=== PATIENT | female | born 1960 | race African-American/Black ===

== ENCOUNTER 2020-02-14 18:43 | Observation (INO) | payer OTHER, SELFPAY ==
[2020-02-14] VITALS (7 sets, daily range): BP systolic 121–150; BP diastolic 58–75; PULSE 55–81; RESP 16–18; TEMP 36.1–37.2; O2SAT 97–100
--- NOTE | ~2020-02-14 | CT_ITS ---
EXAMINATION: CT abdomen pelvis w con DATE: 02/14/2020 23:17 INDICATION: Mid abdominal pain. TECHNIQUE: Computed tomography (CT) of the abdomen and pelvis was performed with 100 mL Omnipaque 350 intravenous contrast. Automated exposure control and iterative reconstruction technique were employe d. The dose-length product was 613.88 mGy-cm. COMPARISON: None. FINDINGS: The visualized portions of the lung bases demonstrate mild atelectasis. No pleural effusion . The heart size is normal. There are coronary artery calcifications. No pericardial effusion. The li trinity, gallbladder, and spleen are normal. The pancreatic duct is mildly dilated. There is a 1.6 cm mas s in right adrenal gland. There is a 1.1 cm mass in left adrenal gland. These masses measure soft tis martha attenuation. The kidneys are normal. There is a left inguinal hernia containing fat. There is div erticulosis of the colon without evidence of diverticulitis. The appendix is normal. There is fat str anding adjacent to the terminal ileum. There are no pathologically enlarged lymph nodes. There is no free intraperitoneal fluid. There is mild lumbar spondylosis. IMPRESSION: 1. Left inguinal hernia containing fat. 2. Fat stranding adjacent to the terminal ileum, consistent with edema versus inflammation. 3. Mildly dilated pancreatic duct, likely chronic pancreatitis. 4. Bilateral adrenal masses. In the absence of known malignancy, these findings are likely adenomas. Reviewed, dictated and finalized at location A. IMPRESSION: 1. Left inguinal hernia containing fat. 2. Fat stranding adjacent to the terminal ileum, consistent with edema versus i nflammation. 3. Mildly dilated pancreatic duct, likely chronic pancreatitis. 4. Bilateral adrenal masses. In the absence of known malignancy, these findings are likely adenomas.
--- NOTE | ~2020-02-14 | US_ITS ---
US right upper quadrant INDICATION: Pancreatitis PROCEDURE: Realtime right upper abdominal ultrasound. COMPARISON: No prior studies for comparison. FINDINGS: The pancreas is normal without focal mass. Pancreatic duct is dilated measuring 4 mm.. Dulce Maria er echotexture is normal without focal mass or intrahepatic biliary dilatation. There is normal dire ctional flow in the portal vein. The gallbladder is normal without stones, gallbladder wall thickening or pericholecystic fluid. Comm on bile duct measures 8 mm. No sonographic Sinha's sign. IMPRESSION: 1: Mildly dilated common bile duct and pancreatic ducts. Obstructing stone or mass identified. Reviewed, dictated and finalized at location B. IMPRESSION: 1: Mildly dilated common bile duct and pancreatic ducts. Obstructing stone or m ass identified.
[2020-02-14 19:21] LABS: Basophils Absolute Auto 0.1 K/mm3 (0.0-0.1); Basophils Percent Auto 0.4 % (0.2-1.2); Eosinophils Absolute Auto 0.2 K/mm3 (0-0.3); Eosinophils Percent Auto 1.3 % (0-4.4); Hematocrit 33.8 % (37.0-47.0); Hemoglobin 11.4 g/dL (12.0-15.0); Immature Granulocyte Absolute 0.12 K/mm3 (0.00-0.031); Immature Granulocyte Percent A 0.8 % (0-0.5); Lymphocytes Absolute Auto 5.45 K/mm3 (0.9-3.2); Lymphocytes Percent Auto 34.6 % (18.3-44.2); Mean Corpuscular HGB Conc 33.7 g/dl (32-36); Mean Corpuscular Hemoglobin 30.8 pg (26-34); Mean Corpuscular Volume 91.4 fl (80-100); Mean Platelet Volume 9.5 fl (7.4-10.4); Monocytes Absolute Auto 0.8 K/mm3 (0.1-0.6); Monocytes Percent Auto 4.8 % (2.6-8.5); Neutrophils Absolute Auto 9.1 K/mm3 (1.3-6.7); Neutrophils Percent Auto 58.1 % (45.5-73.1); Platelet Count Result 283 k/mm3 (150-375); White Blood Count 15.7 K/mm3 (4.5-10.0)
[2020-02-14 19:33] LABS: Alanine Aminotransferase 11 U/L (4-35); Albumin Level 4.4 g/dL (3.5-5.1); Alkaline Phosphatase 97 U/L (38-126); Aspartate Amino Transferase 21 U/L (14-36); Bilirubin,Total 0.2 mg/dL (0.2-1.3); Blood Urea Nitrogen 15 mg/dL (7-17); Calcium 9.7 mg/dL (8.4-10.2); Carbon Dioxide 22 mmol/L (22-30); Chloride 106 mmol/L (98-107); Estimated CRCL calculation 65 ml/min; Estimated Glomerular Filt Rate > 60; Glucose 118 mg/dL (65-105); Lipase 444 U/L (23-300); Potassium 3.8 mmol/L (3.4-5.0); Sodium 136 mmol/L (137-145)
[2020-02-14 20:02] LABS: Add Urine Microscopic? YES; Appearance Urine Clear (Clear); Bacteria Urine Trace /hpf; Bilirubin Urine Negative (Negative); Blood Urine 1+ (Negative); Color Urine Straw (Yellow); Glucose Urine UA 3+ mg/dL (Negative); Ketones Urine Negative (Negative); Leukocyte Esterase Ur 2+ LEU/UL (Negative); Nitrate Urine Negative (Negative); Protein Urine Negative (Negative); Specific Grav Ur 1.009 (1.001-1.035); Squamous Epithelial Cell Urine Few /hpf (Few); Urobilinogen Urine Negative mg/dL (<2.0)
--- NOTE | 2020-02-14 22:17 | ED.GENADULT ---
HPI - General Adult General Chief complaint: Abdominal Pain Stated complaint: abd pain Time Seen by Provider: 02/14/20 21:53 History of Present Illness HPI narrative: Patient is a 59 y/o female complaining of generalized abdominal pain starting 3 days ago. She states that it a constant pain and rates it as 8-9/10. There is no pain radiation. There is no alleviating or exacerbating factor. She has no fever, chill, vomiting, diarrhea or dysuria. Of note, she is scheduled to have right mastectomy for breast cancer. Related Data Home Medications Medication Instructions Recorded Confirmed acetaminophen [Tylenol Arthritis 650 mg PO Q8H 02/15/20 02/15/20 Pain] anastrozole 1 mg PO DAILY 02/15/20 02/15/20 carvedilol 6.25 mg PO BID 02/15/20 02/15/20 empagliflozin [Jardiance] 10 mg PO DAILY 02/15/20 02/15/20 ergocalciferol (vitamin D2) 50,000 unit PO WEEKLY 02/15/20 02/15/20 glimepiride 4 mg PO DAILY 02/15/20 02/15/20 hydrochlorothiazide 25 mg PO DAILY 02/15/20 02/15/20 lisinopril 10 mg PO DAILY 02/15/20 02/15/20 metformin 500 mg PO DAILY 02/15/20 02/15/20 pantoprazole 20 mg PO DAILY 02/15/20 02/15/20 pioglitazone 30 mg PO DAILY 02/15/20 02/15/20 rosuvastatin 40 mg PO DAILY 02/15/20 02/15/20 tramadol 25 mg PO DAILY PRN 02/15/20 02/15/20 Allergies Allergy/AdvReac Type Severity Reaction Status Date / Time codeine Allergy Severe Hives Verified 02/15/20 02:04 Review of Systems Constitutional: Constitutional: Denies chills, Denies fever(s), Denies headache(s) and Denies weakness Eyes: Eyes: Denies blurry vision ENT: Denies headache(s) and Denies neck pain Cardiovascular: Cardiovascular: Denies chest pain and Denies dyspnea Respiratory: Respiratory: Denies cough and Denies dyspnea Gastrointestinal: Gastrointestinal: Reports abdominal pain, Denies diarrhea, Denies nausea and Denies vomiting Genitourinary: Genitourinary: Denies hematuria and Denies dysuria Musculoskeletal: Musculoskeletal: Denies back pain and Denies neck pain Neurologic: Denies headache(s) and Denies weakness [facility] Past Medical History Medical History (Updated 02/15/20 @ 10:25 by Rosalinda Long MD) Ankle fracture Breast cancer Diabetes Family History Family History (Updated 02/15/20 @ 09:54 by James Larios MD) Mother , Diet after complications of surgery for perforated viscus Acute myocardial infarction Sibling Asthma Father , Thought to have in his 50s unknown cause in his sleep No problems noted. Social History Social History (Updated 02/15/20 @ 09:56 by James Larios MD) Social History: Presently lives alone. Occupational exposure Years smoked: 40 Smoking status: Current every day smoker Tobacco type: cigarettes Additional smoking assessment comments: Has smoked for some 40 years presently at half pack a day Alcohol intake: current Drinks per week: 20 Substance use: never Living arrangements: alone Gender identity (if verbalized by the patient): Female Spiritual care concerns: No Exam Const: General: no acute distress and well developed Orientation/consciousness: oriented to person, oriented to place, oriented to time and patient oriented x3 HENMT: Head: normocephalic Ears: external ears normal General nose exam: Normal external nose present Eyes: General: appearance normal, both eyes and all related structures Conjunctivae: conjunctivae normal Neck: Neck: normal visual inspection and full ROM Chest: Chest palpation & inspection: normal inspection of the chest and no tenderness Resp: Effort & Inspection: normal respiratory effort Auscultation: clear to auscultation bilaterally Cardio: Rate: regular rate Rhythm: regular rhythm GI: GI Palp: No abdominal tenderness and Yes Soft to palpation Skin: General skin exam: normal color and turgor normal Neuro: General: oriented to person, oriented to place, oriented to time and patient oriented x3 [facility]ognit
[2020-02-14] MEDS: KETOROLAC 30 MG/ML VIAL (*BKC) IV PUSH (22:46)
[2020-02-15] VITALS (9 sets, daily range): BP systolic 102–135; BP diastolic 54–66; PULSE 56–100; RESP 16–18; TEMP 36.6–37; O2SAT 97–100
[2020-02-15 00:21] LABS: CRP 0.8 mg/dL (<1.0)
[2020-02-15 00:30] LABS: Erythrocyte Sedimentation Rate 27 mm/hr (0-20)
--- NOTE | 2020-02-15 01:40 | ADMGEN ---
This patient, Bri Root, was admitted to [facility] Surg Room 312-01. Patient/family oriented to hospital policies and general routines including ID bracelet, bed and alarms, visiting hours, pain management, procedures, bathroom and other care routines, personal items, smoking policy, room service/diet, and visiting hours. Valuables list has been completed. Information on how to activate the Rapid Response Team has been discussed. Patient/Family are encouraged to report perceived risks to care and to ask questions if they do not understand what they are told or what they should do.
[2020-02-15] MEDS: SODIUM CHLORIDE 0.9% IV 1,000 ML 125 ML IV CONT ×3 (01:42→21:42)
[2020-02-15 08:58] LABS: Glucose Point of Care 80 (65-105)
--- NOTE | 2020-02-15 09:37 | PM.IMHP ---
H&P: HPI History of Present Illness Chief complaint: pancreatitis Narrative: Date of visit 02/14 910. Bri Root is a 59 year old female with history of coronary artery disease and type 2 diabetes mellitus was awaken at approximately 3:00 a.m. on 02/10 with acute abdominal pain across her upper abdomen. Pain has persisted since that time. Been having bowel movements though slightly constipated with no nausea or vomiting. Never had pain like this in the past. She was scheduled to have a right mastectomy on the at [facility] and states that due to anxiety associated with that and not sleeping well she has been drinking about a six-pack of beer each night the past week.. She usually drinks much less usually just on the weekends. In the ER CT thought to be possible chronic pancreatitis with lipase of 444. Pain is better but still present and she is hungry Review of Systems Review of Systems: Narrative: General weight steady appetite good no fever no chills Eye no double vision scotoma Mouth no pharyngitis laryngitis Pulmonary some dyspnea on exertion 2 flights of stairs chronic CV occasional chest discomfort though not with climbing stairs, is status post stenting the last in 2014 GI as per present illness no history of peptic disease no dysuria no hematuria Muscle skeletal no particular joint discuss Integument no skin breakdown rashes Neuropsych seizures syncope [facility] Past Medical History Medical History (Updated 02/15/20 @ 09:52 by James Larios MD) Ankle fracture Breast cancer Diabetes Family History Family History (Updated 02/15/20 @ 09:54 by James Larios MD) Mother , Diet after complications of surgery for perforated viscus Acute myocardial infarction Sibling Asthma Father , Thought to have in his 50s unknown cause in his sleep No problems noted. Social History Social History (Updated 02/15/20 @ 09:56 by James Larios MD) Social History: Presently lives alone. Occupational exposure Years smoked: 40 Smoking status: Current every day smoker Tobacco type: cigarettes Additional smoking assessment comments: Has smoked for some 40 years presently at half pack a day Alcohol intake: current Drinks per week: 20 Substance use: never Living arrangements: alone Gender identity (if verbalized by the patient): Female Spiritual care concerns: No Meds Home Medications and Allergies Home Medications Medication Instructions Recorded Confirmed Type acetaminophen [Tylenol Arthritis 650 mg PO Q8H 02/15/20 02/15/20 History Pain] anastrozole 1 mg PO DAILY 02/15/20 02/15/20 History carvedilol 6.25 mg PO BID 02/15/20 02/15/20 History empagliflozin [Jardiance] 10 mg PO DAILY 02/15/20 02/15/20 History ergocalciferol (vitamin D2) 50,000 unit PO WEEKLY 02/15/20 02/15/20 History glimepiride 4 mg PO DAILY 02/15/20 02/15/20 History hydrochlorothiazide 25 mg PO DAILY 02/15/20 02/15/20 History lisinopril 10 mg PO DAILY 02/15/20 02/15/20 History metformin 500 mg PO DAILY 02/15/20 02/15/20 History pantoprazole 20 mg PO DAILY 02/15/20 02/15/20 History pioglitazone 30 mg PO DAILY 02/15/20 02/15/20 History rosuvastatin 40 mg PO DAILY 02/15/20 02/15/20 History tramadol 25 mg PO DAILY PRN 02/15/20 02/15/20 History Allergies Allergy/AdvReac Type Severity Reaction Status Date / Time codeine Allergy Severe Hives Verified 02/15/20 02:04 Vital Signs Vital Signs - 24 hr 02/14/20 19:10 02/14/20 21:34 02/14/20 22:00 Temperature 37.2 C 36.1 C L Pulse Rate 81 77 55 L Respiratory Rate 18 18 Blood Pressure 121/66 148/69 H 127/69 Pulse Oximetry 100 100 98 02/14/20 22:30 02/14/20 23:00 02/14/20 23:30 Temperature Pulse Rate 72 67 78 Respiratory Rate 18 16 16 Blood Pressure 127/69 133/58 L 150/75 H Pulse Oximetry 98 97 99 02/14/20 23:54 02/15/20 00:00 02/15/20 00:30 Temperature Pulse Rate 73 74 73 Respiratory Rate 16 16
[2020-02-15] MEDS: ROSUVASTATIN 10 MG TABLET 40 MG PO (12:55)
[2020-02-15] MEDS: PIOGLITAZONE HCL 30 MG TABLET PO (12:56)
[2020-02-15] MEDS: ACETAMINOPHEN 325 MG TABLET 650 MG PO ×2 (12:56→17:24)
[2020-02-15] MEDS: ANASTROZOLE (*CHEMO) 1 MG TABLET PO (12:56)
[2020-02-15] MEDS: lisinopriL 10 MG TABLET PO (12:57)
[2020-02-15] MEDS: carvediloL 6.25 MG TABLET PO ×2 (12:57→21:41)
[2020-02-15] MEDS: PANTOPRAZOLE SOD SESQUIHYDRATE 20 MG TAB PO (12:58)
[2020-02-15] MEDS: THIAMINE HCL 100 MG TABLET PO (17:24)
[2020-02-15] MEDS: ENOXAPARIN 40 MG/0.4 ML SYRINGE SUB-Q (17:24)
--- NOTE | 2020-02-15 18:06 | WPDGICN ---
Assessment and Plan Assessment and plan (1) Abdominal pain: Qualifiers: Abdominal location: generalized Qualified Code(s): R10.84 - Generalized abdominal pain Code(s): R10.9 - Unspecified abdominal pain Status: Acute Assessment and Plan: probably due to pancreatitis, PD slightly dilated. Now tolerating liquid diet will do egd tomorrow to assess if ulcers, etc (2) Pancreatitis: Qualifiers: Chronicity: chronic Pancreatitis type: unspecified pancreatitis type Qualified Code(s): K86.1 - Other chronic pancreatitis Code(s): K85.90 - Acute pancreatitis without necrosis or infection, unspecified Status: Acute Assessment and Plan: avoid alcohol (3) ETOH abuse: Code(s): F10.10 - Alcohol abuse, uncomplicated Status: Acute Assessment and Plan: she has been drinking recently more than usual because insomnia and anxiety (4) Abdominal pain: Code(s): R10.9 - Unspecified abdominal pain Status: Acute (5) Abnormal computed tomography of cecum and terminal ileum: Code(s): R93.3 - Abnormal findings on diagnostic imaging of other parts of digestive tract Status: Acute Assessment and Plan: noted abnormal TI, never had a colonoscopy. She is willing to get one tomorrow (6) Breast cancer: Code(s): C50.919 - Malignant neoplasm of unspecified site of unspecified female breast Status: Acute Assessment and Plan: she will have breast surgery in few more days GI Consult Note Consult date/time: 02/15/20 18:06 Reason for consult: abdominal pain, pancreatitis, abnormal TI by CT scan HPI: Bri Root is a 59 year old female with history of coronary artery disease, type 2 diabetes mellitus here with new onset of pain around 3:30 a.m. on 02/10 across her upper abdomen but worse if lying on her right side, pain is better now and was intermittent. She has bowel movements but more constipated, no nausea or vomiting. She was scheduled to have a right mastectomy on the at [facility] and she has been quite anxious about it unable to sleep therefore has been drinking about a six-pack of beer each night the last 2 weeks, normally she only drinks on the weekends. Never had pancreatitis. CT scan showed fat stranding adjacent to the terminal ileum, consistent with edema versus inflammation and also mildly dilated pancreatic duct, likely chronic pancreatitis. lipase 440 with normal liver enzymes. Never had scopes. Review of Systems Constitutional: Constitutional: Denies headache(s) and Denies weakness Eyes: Eyes: Denies blurry vision ENT: Reports Normal hearing present, Denies headache(s) and Denies neck pain Cardiovascular: Cardiovascular: Denies chest pain and Denies dyspnea Respiratory: Respiratory: Denies dyspnea Gastrointestinal: Gastrointestinal: Reports no additional gastrointestinal complaints Genitourinary: Genitourinary: Denies dysuria Musculoskeletal: Musculoskeletal: Denies neck pain Integumentary/Breasts: Skin/Breast: Denies dry skin Neurologic: Reports Normal hearing present, Denies headache(s) and Denies weakness Psychiatric: Psychiatric: Denies anxiety Endocrine: Endocrine: Denies change in body appearance Hematologic/Lymphatic: Hematologic/Lymphatic: Denies easy bleeding Allergic/Immunologic: Allergic/Immunologic: Denies urticaria PMFSH Past Medical History Medical History (Updated 02/15/20 @ 18:10 by Luis Serrano MD) Abnormal computed tomography of cecum and terminal ileum Ankle fracture Breast cancer Diabetes Family History Family History (Updated 02/15/20 @ 09:54 by James Larios MD) Mother , Diet after complications of surgery for perforated viscus Acute myocardial infarction Sibling Asthma Father , Thought to have in his 50s unknown cause in his sleep No problems noted. Social History Social History (Updated 02/15/20
[2020-02-15] MEDS: BISACODYL 5 MG TABLET EC 20 MG PO (21:39)
[2020-02-15] MEDS: polyethylene glycoL 3350 238 GM BOTTLE PO (21:40)
[2020-02-15] MEDS: ONDANSETRON INJ 4 MG/2 ML VIAL IV PUSH (21:42)
[2020-02-16] VITALS (8 sets, daily range): BP systolic 88–130; BP diastolic 38–77; PULSE 62–75; RESP 16–22; TEMP 36.2–37.2; O2SAT 97–100
[2020-02-16] MEDS: ACETAMINOPHEN 325 MG TABLET 650 MG PO ×3 (01:41→18:07)
[2020-02-16] MEDS: SODIUM CHLORIDE 0.9% IV 1,000 ML 125 ML IV CONT (05:17)
[2020-02-16] MEDS: MAGNESIUM CITRATE 300 ML BTL 150 ML PO (05:19)
[2020-02-16 06:27] LABS: Basophils Absolute Auto 0.1 K/mm3 (0.0-0.1); Basophils Percent Auto 0.6 % (0.2-1.2); Eosinophils Absolute Auto 0.2 K/mm3 (0-0.3); Eosinophils Percent Auto 1.9 % (0-4.4); Hematocrit 33.3 % (37.0-47.0); Hemoglobin 10.9 g/dL (12.0-15.0); Immature Granulocyte Absolute 0.06 K/mm3 (0.00-0.031); Immature Granulocyte Percent A 0.5 % (0-0.5); Mean Corpuscular HGB Conc 32.7 g/dl (32-36); Mean Corpuscular Hemoglobin 30.4 pg (26-34); Mean Corpuscular Volume 92.8 fl (80-100); Mean Platelet Volume 9.4 fl (7.4-10.4); Monocytes Absolute Auto 0.6 K/mm3 (0.1-0.6); Monocytes Percent Auto 5.5 % (2.6-8.5); Neutrophils Absolute Auto 5.7 K/mm3 (1.3-6.7); Neutrophils Percent Auto 51.5 % (45.5-73.1); Platelet Count Result 257 k/mm3 (150-375); Red Blood Count 3.59 M/mm3 (4.2-5.4); Red Cell Distribution Width 15.2 % (11.5-14.5)
[2020-02-16 06:41] LABS: Alanine Aminotransferase 10 U/L (4-35); Albumin Level 3.8 g/dL (3.5-5.1); Alkaline Phosphatase 85 U/L (38-126); Aspartate Amino Transferase 22 U/L (14-36); Bilirubin,Total 0.1 mg/dL (0.2-1.3); Blood Urea Nitrogen 11 mg/dL (7-17); Calcium 8.9 mg/dL (8.4-10.2); Carbon Dioxide 21 mmol/L (22-30); Chloride 113 mmol/L (98-107); Cholesterol 138 mg/dL (0-200); Estimated CRCL calculation 72 ml/min; Estimated Glomerular Filt Rate > 60; Glucose 143 mg/dL (65-105); HDL Direct 29 mg/dL; Lipase 451 U/L (23-300); Potassium 3.9 mmol/L (3.4-5.0); Sodium 140 mmol/L (137-145); Triglycerides 200 mg/dL (<150)
[2020-02-16 06:52] LABS: LDL Cholesterol Direct 71 mg/dL
[2020-02-16 06:54] LABS: Hemoglobin A1C 6.5 % (<5.7)
[2020-02-16] MEDS: THIAMINE HCL 100 MG TABLET PO (09:09)
[2020-02-16] MEDS: PANTOPRAZOLE SOD SESQUIHYDRATE 20 MG TAB PO (09:09)
[2020-02-16] MEDS: ROSUVASTATIN 10 MG TABLET 40 MG PO (09:09)
[2020-02-16] MEDS: PIOGLITAZONE HCL 30 MG TABLET PO (09:09)
[2020-02-16] MEDS: carvediloL 6.25 MG TABLET PO (09:10)
[2020-02-16] MEDS: lisinopriL 10 MG TABLET PO (09:10)
[2020-02-16] MEDS: ANASTROZOLE (*CHEMO) 1 MG TABLET PO (09:10)
[2020-02-16 12:57] LABS: Glucose Point of Care 92 (65-105)
--- NOTE | 2020-02-16 13:00 | WPDANESEPPF ---
Anes - Initial Pre Proc Eval Procedure: Operation Date: 02/16/20 13:15 Proposed Procedures p Esophagogastroduodenoscopy & Colonoscopy - Luis Serrano MD Date/Time: 02/16/20 13:00 Surgeon: Diana Daniel DO Pre Op Diagnosis: pancreatitis Patient Data Age: 59 Gender: F Height: 5 ft 4 in Weight: 74.8 kg Last Vital Signs Temp 98.4 F 02/16/20 12:58 Pulse 65 02/16/20 12:58 Resp 22 H 02/16/20 12:58 BP 122/68 02/16/20 12:58 Pulse Ox 100 02/16/20 12:58 Allergies Allergy/AdvReac Type Severity Reaction Status Date / Time codeine Allergy Severe Hives Verified 02/16/20 12:57 Home Medications Medication Instructions Recorded Confirmed Type acetaminophen [Tylenol Arthritis 650 mg PO Q8H 02/15/20 02/15/20 History Pain] anastrozole 1 mg PO DAILY 02/15/20 02/15/20 History carvedilol 6.25 mg PO BID 02/15/20 02/15/20 History empagliflozin [Jardiance] 10 mg PO DAILY 02/15/20 02/15/20 History ergocalciferol (vitamin D2) 50,000 unit PO WEEKLY 02/15/20 02/15/20 History glimepiride 4 mg PO DAILY 02/15/20 02/15/20 History hydrochlorothiazide 25 mg PO DAILY 02/15/20 02/15/20 History lisinopril 10 mg PO DAILY 02/15/20 02/15/20 History metformin 500 mg PO DAILY 02/15/20 02/15/20 History pantoprazole 20 mg PO DAILY 02/15/20 02/15/20 History pioglitazone 30 mg PO DAILY 02/15/20 02/15/20 History rosuvastatin 40 mg PO DAILY 02/15/20 02/15/20 History tramadol 25 mg PO DAILY PRN 02/15/20 02/15/20 History Laboratory Tests 02/16/20 02/16/20 02/16/20 06:08 06:08 06:08 WBC 11.0 K/mm3 H K/mm3 (4.5-10.0) RBC 3.59 M/mm3 L M/mm3 (4.2-5.4) Hgb 10.9 g/dL L g/dL (12.0-15.0) Hct 33.3 % L % (37.0-47.0) MCV 92.8 fl fl (80-100) MCH 30.4 pg pg (26-34) MCHC 32.7 g/dl g/dl (32-36) RDW 15.2 % H % (11.5-14.5) Plt Count 257 k/mm3 k/mm3 (150-375) MPV 9.4 fl fl (7.4-10.4) Immature Gran % (Auto) 0.5 % % (0-0.5) Neut % (Auto) 51.5 % % (45.5-73.1) Lymph % (Auto) 40.0 % % (18.3-44.2) [place] % (Auto) 5.5 % % (2.6-8.5) Eos % (Auto) 1.9 % % (0-4.4) Baso % (Auto) 0.6 % % (0.2-1.2) Lymph # (Auto) 4.40 K/mm3 H K/mm3 (0.9-3.2) [place] # (Auto) 0.6 K/mm3 K/mm3 (0.1-0.6) Eos # (Auto) 0.2 K/mm3 K/mm3 (0-0.3) Baso # (Auto) 0.1 K/mm3 K/mm3 (0.0-0.1) Abs Immat Gran (auto) 0.06 K/mm3 H K/mm3 (0.00-0.031) Absolute Neuts (auto) 5.7 K/mm3 K/mm3 (1.3-6.7) Absolute Nucleated RBC 0.0 K/mm3 K/mm3 (0.0-0.012) Nucleated RBC % 0.0 % % (0.0-0.2) Sodium 140 mmol/L mmol/L (137-145) Potassium 3.9 mmol/L mmol/L (3.4-5.0) Chloride 113 mmol/L H mmol/L (98-107) Carbon Dioxide 21 mmol/L L mmol/L (22-30) BUN 11 mg/dL mg/dL (7-17) Creatinine 0.70 mg/dL mg/dL (0.7-1.0) Estim Creat Clear Calc 72 ml/min ml/min Estimated GFR > 60 (59 - ) Glucose 143 mg/dL H mg/dL (65-105) POC Capillary Glucose Hemoglobin A1c 6.5 % H % (<5.7) Calcium 8.9 mg/dL mg/dL (8.4-10.2) Total Bilirubin 0.1 mg/dL L mg/dL (0.2-1.3) AST 22 U/L U/L (14-36) ALT 10 U/L U/L (4-35) Alkaline Phosphatase 85 U/L U/L (38-126) Total Protein 7.0 g/dL g/dL (6.3-8.2) Albumin 3.8 g/dL g/dL (3.5-5.1) Triglycerides 200 mg/dL H mg/dL (<150) Cholesterol 138 mg/dL mg/dL (0-200) LDL Cholesterol Direct 71 mg/dL mg/dL HDL Direct 29 mg/dL mg/dL Lipase 451 U/L H U/L (23-300) 02/16/20 12:54 WBC RBC Hgb Hct MCV MCH MCHC RDW Plt Count MPV Immature Gran % (Auto) Neut % (Auto) Lymph % (
[2020-02-16] MEDS: LACTATED RINGERS 1,000 ML 150 ML IV CONT (13:05)
--- NOTE | 2020-02-16 16:27 | PM.IMPN ---
Progress Note: A&P Assessment and Plan (1) Abdominal pain: Code(s): R10.9 - Unspecified abdominal pain Status: Acute Assessment and Plan: Probable low-grade pancreatitis. sonogram right upper quadrant no gallstones, continue PPI with EGD today revealing mild gastritis, lipids not elevated. She has good bowel sounds and will advance diet is tolerated if does well discharge later today. Suspect all secondary to ETOH (2) ETOH abuse: Code(s): F10.10 - Alcohol abuse, uncomplicated Status: Acute Assessment and Plan: Suspect as by history just recently since MCV and LFTs are normal. Continue to monitor (3) Coronary artery disease: Code(s): I25.10 - Atherosclerotic heart disease of [place] coronary artery without angina pectoris Status: Acute Assessment and Plan: By history. Continue beta-shan and Ravindra and statin. Stable (4) Diabetes: Code(s): E11.9 - Type 2 diabetes mellitus without complications Status: Acute Assessment and Plan: Blood sugar fine and will check A1c 6.5. . Sliding scale while inpatient off oral hypoglycemic (5) Breast cancer: Code(s): C50.919 - Malignant neoplasm of unspecified site of unspecified female breast Status: Acute Assessment and Plan: Continue anastrozole and surgery on hold at present time and she has contacted her surgeon. Subjective Date/time seen: 02/16/20 16:27 Interval history: Date of visit is 02/15. [age] type 2 diabetic who had been drinking about a six-pack in evening admitted with acute onset abdominal pain thought to have a low-grade pancreatitis. Pain is subsided and feeling much better. EGD a a colonoscopy Scheduled for today Exam Narrative: Exam Narrative: Blood pressure 108/72 pulse 74 saturating 97% on room air afebrile Pupils equal reactive light sclera anicteric Mouth normal Neck is supple Lungs clear CV regular rate rhythm no murmurs or gallops Abdomen is soft with decreased tenderness to palpation across the upper abdomen and no rebound or guarding, good bowel sounds Extremities without edema distal pulses are 2+ Neuro alert pleasant cooperative no focal deficits Breast not examined with history of right breast cancer Psych appropriate affect Objective Data Vital Signs Vital Signs: Vital Signs - 24 hr 02/15/20 21:41 02/15/20 22:00 02/16/20 00:00 Temperature 37.0 C 36.9 C Pulse Rate 72 56 L 69 Respiratory Rate 16 18 Blood Pressure 135/63 122/77 Pulse Oximetry 99 100 02/16/20 06:00 02/16/20 10:18 02/16/20 12:58 Temperature 37.1 C 37.2 C 36.9 C Pulse Rate 64 69 65 Respiratory Rate 16 18 22 H Blood Pressure 121/61 130/75 122/68 Pulse Oximetry 98 100 100 02/16/20 13:10 02/16/20 14:36 02/16/20 14:46 Temperature 36.2 C L Pulse Rate 62 71 72 Respiratory Rate 18 18 18 Blood Pressure 130/71 88/40 L 93/38 L Pulse Oximetry 100 97 100 02/16/20 14:56 Temperature Pulse Rate 75 Respiratory Rate 18 Blood Pressure 107/43 L Pulse Oximetry 100 Intake/Output Intake/Output: Intake & Output 02/13/20 02/14/20 02/15/20 02/16/20 23:59 23:59 23:59 23:59 Intake Total 2480 1850 Output Total 450 800 Balance 2030 1050 Meds/Results Medications: Active Medications Generic Name Dose Route Start Last Admin Trade Name Freq PRN Reason Stop Dose Admin Acetaminophen 650 mg 02/15/20 09:35 02/16/20 09:09 Tylenol Tablet PO 650 mg Q8H CATALINO Administration Anastrozole 1 mg 02/15/20 10:00 02/16/20 09:10 Arimidex PO 03/17/20 10:01 1 mg DAILY CATALINO Administration Carvedilol 6.25 mg 02/15/20 10:00 02/16/20 09:10 Coreg PO 6.25 mg Q12HR CATALINO Administration Enoxaparin Sodium 40 mg 02/15/20 09:35 02/15/20 17:24 Lovenox SUB-Q 40 mg DAILY CATALINO Administration Ergocalciferol 50,000 unit 02/18/20 09:00 Drisdol PO WEEKLY CATALINO Fentanyl Citrate 50 mcg 02/15/20 00:03 Sublimaze IV PUSH Q4H PRN Pain
--- NOTE | 2020-02-19 18:34 | PM.DS ---
DS: Admitting Diagnosis Admitting Diagnosis Admitting Diagnosis: Unspecified abdominal pain DS: Discharge Diagnosis Discharge Diagnosis (1) Abdominal pain: Code(s): R10.9 - Unspecified abdominal pain Status: Acute Assessment and Plan: Probable low-grade pancreatitis. sonogram right upper quadrant no gallstones, continue PPI with EGD revealing mild patchy gastritis, lipids not elevated. She has good bowel sounds and advanced diet which she tolerated well. Suspect all secondary to ETOH (2) ETOH abuse: Code(s): F10.10 - Alcohol abuse, uncomplicated Status: Acute Assessment and Plan: Suspect as by history just recently since MCV and LFTs are normal. Continue to monitor Instructed patient on cessation of alcohol consumption and she agree (3) Coronary artery disease: Code(s): I25.10 - Atherosclerotic heart disease of [place] coronary artery without angina pectoris Status: Acute Assessment and Plan: By history. Continue beta-shan and Ravindra and statin. Stable (4) Diabetes: Code(s): E11.9 - Type 2 diabetes mellitus without complications Status: Acute Assessment and Plan: Blood sugar fine and will check A1c 6.5. . Sliding scale while inpatient and resumed oral hypoglycemics on discharge (5) Breast cancer: Code(s): C50.919 - Malignant neoplasm of unspecified site of unspecified female breast Status: Acute Assessment and Plan: Continue anastrozole and surgery on hold at present time and she has contact her surgeon. (6) Adenomatous polyp: Code(s): D36.9 - Benign neoplasm, unspecified site Status: Acute Assessment and Plan: Adenomatous polyp found on colonoscopy and should have repeat colonoscope in 5 years. She will follow-up with GI DS: Summary Hospital Course Hospital Course: 59-year-old hypertensive type 2 diabetic scheduled upcoming right mastectomy for adenocarcinoma. She has not been sleeping well and had been drinking more beer to relax and help her sleep. She presented with abdominal pain and CT scan revealed what looked to be possible mild pancreatitis and lipase was slightly elevated. Symptoms resolved quickly and lipids were normal. Sonogram revealed no gallstones and EGD revealed no peptic disease to some mild patchy gastritis She tolerated diet well was up in about a will be discharged home after EGD. She will follow-up with her surgeon and was instructed to cease alcohol consumption. Other medications remain the same Time Spent with Patient Time attestation: Total time spent providing and/or coordinating discharge services: 35 minutes Exam Narrative: Exam Narrative: Condition on discharge Blood pressure 106/42 pulse 78 saturating 100% on room air afebrile Lungs clear CV regular rate rhythm Abdomen is soft bowel sounds normal active no further discomfort Extremities without edema good distal pulses Tolerated regular diet before discharge DS: Data Data Completed and Pending Completed studies during hospitalization: Pending at discharge 02/16/20 14:30 Surgical [PTH] Routine Discharge Plan Discharge Attending physician on discharge: James Larios Consulting providers: Luis Serrano ; Pernell Farfan V. ; Shyam Bailon Discharging Clinician: James Larios Patient Disposition: Home, Self-Care Activity: as tolerated Diet: diabetic, low sodium and low fat Discharge Instructions: contact surgeon to reschedule . should be able to have surgery next week No ETOH Patient Instructions: Antibiotic Form, How to Stop Smoking (DC), Pancreatitis (DC), Pain Management (DC) Stand Alone Forms: General Discharge Information Follow-up/Referrals: Madeline,Adalid Higuera [Primary Care Provider] - 2 Weeks Discharge Medications: Continued anastrozole 1 mg tablet 1 mg PO DAILY RF: 0 carvedilol 6.25 mg tablet 6.25 mg PO BID RF: 0 tramadol 50 mg
== END 2020-02-16 19:30 | disposition home or self-care (01) ==
LOC: ANHED 02-15 00:25 → ANH3MEDSUR 02-15 02:22
PROVIDERS: Internal Medicine Gastroenterology; Admitting Provider Internal Medicine; Emergency Provider Emergency Medicine; PCP Internal Medicine Infectious Disease; Visit Provider Internal Medicine
PROC: 0DJ08ZZ Inspection of Upper Intestinal Tract, Via Natural or Artificial Opening Endoscopic (ICD-10-PCS; CPT 43235; principal; 2020-02-16 13:15)
DX: R10.84 Generalized abdominal pain (principal); F10.10 Alcohol abuse, uncomplicated; I25.10 Atherosclerotic heart disease of native coronary artery without angina pectoris; E11.9 Type 2 diabetes mellitus without complications; C50.919 Malignant neoplasm of unspecified site of unspecified female breast; K29.50 Unspecified chronic gastritis without bleeding; K44.9 Diaphragmatic hernia without obstruction or gangrene; D12.6 Benign neoplasm of colon, unspecified; K62.1 Rectal polyp; K63.5 Polyp of colon; K57.30 Diverticulosis of large intestine without perforation or abscess without bleeding; F17.210 Nicotine dependence, cigarettes, uncomplicated; K85.90 Acute pancreatitis without necrosis or infection, unspecified; Z79.811 Long term (current) use of aromatase inhibitors; Z79.84 Long term (current) use of oral hypoglycemic drugs
CPT/HCPCS: 45385; 43239; 36415; 74177; 76705; 80053; 80061; 81001; 83036; 83690; 85025; 85652; 86140; 87081; 87086; 88305; 96360; 96361; 96372; 96374; 96375; 99285; A9270; G0378; G0379; J1650; J1885; J2370; J2405; J2704; J3010; J7030; J7120; Q9967

== ENCOUNTER 2022-03-13 01:42 | Day surgery (SDC) | payer OTHER, SELFPAY ==
[2022-03-01 13:34] VITALS: BMI 29.7
[2022-03-13 07:30] VITALS: BP 133/69; PULSE 74; RESP 18; TEMP 36.9; O2SAT 100; BMI 29.9
[2022-03-13] MEDS: LACTATED RINGERS 1,000 ML 150 ML IV CONT (08:01)
[2022-03-13 08:03] LABS: Glucose Point of Care 176 mg/dl (65-105)
--- NOTE | 2022-03-13 08:26 | WPDANESEPPF ---
Anes - Initial Pre Proc Eval Procedure: Operation Date: 03/13/22 09:00 Proposed Procedures p Esophagogastroduodenoscopy - Luis Serrano MD Date/Time: 03/13/22 08:26 Surgeon: Luis Serrano MD Pre Op Diagnosis: gastritis Patient Data Age: 61 Gender: F Height: 1.63 m Weight: 79 kg Last Vital Signs Temp 98.4 F 03/13/22 07:30 Pulse 74 03/13/22 07:30 Resp 18 03/13/22 07:30 BP 133/69 03/13/22 07:30 Pulse Ox 100 03/13/22 07:30 O2 Del Method Room Air 03/13/22 07:30 Allergies Allergy/AdvReac Type Severity Reaction Status Date / Time codeine Allergy Severe Hives Verified 03/13/22 07:42 Home Medications Medication Instructions Recorded Confirmed Type acetaminophen 650 mg 650 mg PO Q8H PRN Pain 02/15/20 03/13/22 History tablet,extended release (Tylenol Arthritis Pain) carvedilol 6.25 mg tablet 6.25 mg PO BID 02/15/20 03/13/22 History glimepiride 4 mg tablet 4 mg PO DAILY 02/15/20 03/13/22 History hydrochlorothiazide 25 mg tablet 25 mg PO DAILY 02/15/20 03/13/22 History lisinopril 10 mg tablet 10 mg PO DAILY 02/15/20 03/13/22 History pantoprazole 20 mg tablet,delayed 20 mg PO DAILY 02/15/20 03/13/22 History release pioglitazone 30 mg tablet 30 mg PO DAILY 02/15/20 03/13/22 History rosuvastatin 40 mg tablet 40 mg PO DAILY 02/15/20 03/13/22 History aspirin 81 mg tablet 81 mg PO DAILY 03/01/22 03/13/22 History calcium carbonate 600 mg-vitamin 1 tablet PO DAILY 03/01/22 03/13/22 History D3 10 mcg (400 unit) tablet (Calcium 600 + D(3)) clopidogrel 75 mg tablet 75 mg PO DAILY 03/01/22 03/13/22 History empagliflozin 25 mg tablet 25 mg PO DAILY 03/01/22 03/13/22 History (Jardiance) Laboratory Tests 03/13/22 07:49 POC Capillary Glucose 176 mg/dl H mg/dl (65-105) Patient hx anesthesia problems: none Family hx anesthesia problems: none Results Review: All pre-operative results and documents have been reviewed as part of the pre-operative evaluation. [facility] Past Medical History Medical History (Updated 02/19/20 @ 18:38 by James CooperMD) Abnormal computed tomography of cecum and terminal ileum Ankle fracture Breast cancer Diabetes Family History Family History (Updated 02/15/20 @ 09:54 by James CooperMD) Mother , Diet after complications of surgery for perforated viscus Acute myocardial infarction Sibling Asthma Father , Thought to have in his 50s unknown cause in his sleep No problems noted. Social History Social History (Updated 02/15/20 @ 09:56 by James LariosMD) Social History: Presently lives alone. Occupational exposure Years smoked: 45 Smoking status: Current every day smoker Tobacco type: cigarettes Additional smoking assessment comments: Has smoked for some 40 years presently at half pack a day Alcohol intake: current Drinks per week: 4 Alcohol use details: BEERS/WINE Substance use: current Substance use type: marijuana Other substance usage details: VAPE PEN OCC. FOR PAIN Living arrangements: with family Gender identity (if verbalized by the patient): Female Spiritual care concerns: No Anes - Eval Final PreProcedure Day of Procedure 03/13/22 08:26 Patient weight: obese Heart: regular rate and rhythm Lungs: clear to auscultation Airway: Mallampati scale class III Neurological: alert and oriented Last oral intake: >/= 8 hours ASA classification: III Emergent: no Anesthetic plan: proceed Anesthesia type and monitoring: general GIVS and standard monitoring Results Review: All pre-operative results and documents have been reviewed as part of the pre-operative evaluation. Informed Consent: The patient's anesthetic plan and its attendant risks and benefits were discussed with the patient/family/POA. Questions were solicited and answers provided to the satisfaction of the patient/family/POA.
--- NOTE | 2022-03-13 08:37 | PM.HPGS ---
History of Present Illness History of Present Illness Consent: Risks, benefits, and alternatives have been discussed and questions answered. Patient agrees to proceed with procedure. Chief complaint: gastritis Narrative: Bri Root is a 61 year old female with atrophic gastritis diagnosed by egd in 2019, doing well with pantoprazole Review of Systems Constitutional: Constitutional: Denies headache(s) and Denies weakness Eyes: Eyes: Denies blurry vision ENT: Reports Normal hearing present, Denies headache(s) and Denies neck pain Cardiovascular: Cardiovascular: Denies chest pain and Denies dyspnea Respiratory: Respiratory: Denies dyspnea Gastrointestinal: Gastrointestinal: Reports no additional gastrointestinal complaints Genitourinary: Genitourinary: Denies dysuria Musculoskeletal: Musculoskeletal: Denies neck pain Integumentary/Breasts: Skin/Breast: Denies dry skin Neurologic: Reports Normal hearing present, Denies headache(s) and Denies weakness Psychiatric: Psychiatric: Denies anxiety Endocrine: Endocrine: Denies change in body appearance Hematologic/Lymphatic: Hematologic/Lymphatic: Denies easy bleeding Allergic/Immunologic: Allergic/Immunologic: Denies urticaria PMF Past Medical History Medical History (Updated 03/13/22 @ 08:38 by Luis Serrano MD) Abnormal computed tomography of cecum and terminal ileum Ankle fracture Atrophic gastritis Breast cancer Diabetes Family History Family History (Updated 02/15/20 @ 09:54 by James LariosMD) Mother , Diet after complications of surgery for perforated viscus Acute myocardial infarction Sibling Asthma Father , Thought to have in his 50s unknown cause in his sleep No problems noted. Social History Social History (Updated 02/15/20 @ 09:56 by James LariosMD) Social History: Presently lives alone. Occupational exposure Years smoked: 45 Smoking status: Current every day smoker Tobacco type: cigarettes Additional smoking assessment comments: Has smoked for some 40 years presently at half pack a day Alcohol intake: current Drinks per week: 4 Alcohol use details: BEERS/WINE Substance use: current Substance use type: marijuana Other substance usage details: VAPE PEN OCC. FOR PAIN Living arrangements: with family Gender identity (if verbalized by the patient): Female Spiritual care concerns: No Meds Home Medications and Allergies Home Medications Medication Instructions Recorded Confirmed Type acetaminophen 650 mg 650 mg PO Q8H PRN Pain 02/15/20 03/13/22 History tablet,extended release (Tylenol Arthritis Pain) carvedilol 6.25 mg tablet 6.25 mg PO BID 02/15/20 03/13/22 History glimepiride 4 mg tablet 4 mg PO DAILY 02/15/20 03/13/22 History hydrochlorothiazide 25 mg tablet 25 mg PO DAILY 02/15/20 03/13/22 History lisinopril 10 mg tablet 10 mg PO DAILY 02/15/20 03/13/22 History pantoprazole 20 mg tablet,delayed 20 mg PO DAILY 02/15/20 03/13/22 History release pioglitazone 30 mg tablet 30 mg PO DAILY 02/15/20 03/13/22 History rosuvastatin 40 mg tablet 40 mg PO DAILY 02/15/20 03/13/22 History aspirin 81 mg tablet 81 mg PO DAILY 03/01/22 03/13/22 History calcium carbonate 600 mg-vitamin 1 tablet PO DAILY 03/01/22 03/13/22 History D3 10 mcg (400 unit) tablet (Calcium 600 + D(3)) clopidogrel 75 mg tablet 75 mg PO DAILY 03/01/22 03/13/22 History empagliflozin 25 mg tablet 25 mg PO DAILY 03/01/22 03/13/22 History (Jardiance) Allergies Allergy/AdvReac Type Severity Reaction Status Date / Time codeine Allergy Severe Hives Verified 03/13/22 07:42 Vital Signs Vital Signs - 24 hr 03/13/22 07:30 Temperature 98.4 F Pulse Rate 74 Respiratory Rate 18 Blood Pressure 133/69 Pulse Oximetry 100 Oxygen Delivery Room Air Exam Const: General: comfortable and no acute distress HENMT: General nose exam: Normal nares
[2022-03-13 08:53] VITALS: BP 103/65; PULSE 79; RESP 17; O2SAT 94
[2022-03-13 09:03] VITALS: BP 137/68; PULSE 73; RESP 17; O2SAT 100
[2022-03-13 09:10] VITALS: BP 111/70; PULSE 70; RESP 16; O2SAT 100
== END 2022-03-13 09:25 | disposition home or self-care (01) ==
PROVIDERS: PCP Internal Medicine Infectious Disease; Visit Provider Internal Medicine Gastroenterology
PROC: 0DJ08ZZ Inspection of Upper Intestinal Tract, Via Natural or Artificial Opening Endoscopic (ICD-10-PCS; CPT 43235; principal; 2022-03-13 09:00)
DX: K29.40 Chronic atrophic gastritis without bleeding (principal); K44.9 Diaphragmatic hernia without obstruction or gangrene; E11.9 Type 2 diabetes mellitus without complications; Z85.3 Personal history of malignant neoplasm of breast; F17.210 Nicotine dependence, cigarettes, uncomplicated; F12.90 Cannabis use, unspecified, uncomplicated; E66.9 Obesity, unspecified; Z68.29 Body mass index [BMI] 29.0-29.9, adult; Z79.84 Long term (current) use of oral hypoglycemic drugs; Z79.82 Long term (current) use of aspirin; Z79.02 Long term (current) use of antithrombotics/antiplatelets
CPT/HCPCS: 43239; 82948; 88305; 88342; J2704; J7120

== ENCOUNTER 2025-06-21 00:49 | Inpatient (IN) | payer OTHER, SELFPAY ==
[2025-06-21] VITALS (14 sets, daily range): BP systolic 125–147; BP diastolic 51–86; PULSE 66–106; RESP 14–20; TEMP 36.4–36.9; O2SAT 91–100; BMI 30.1
--- NOTE | ~2025-06-21 | MR_ITS ---
EXAMINATION: MR MRCP wo/w con/w 3D wo ind DATE: 06/21/2025 20:18 INDICATION: Follow-up of pancreatic duct dilation on CT scan. TECHNIQUE: Magnetic resonance imaging (MRI) of the abdomen was performed without intravenous contrast. Sequences included coronal T2-weighted FS FSE, coronal T2- weighted FSE, axial T1-weighted LAVA, coronal FS FIESTA, axial dual-echo T1- weighted SPGR, coronal lava-FLEX, sagittal T2-weighted FSE, axial T2-weighted FSE, and axial DWI. Thick-slab T2-weighted FSE images were obtained for magnetic resonance cholangiopancreatography (MRCP). Maximum intensity projection 3-D reconstructions of the volumetric data were created by the technologist. Postcontrast sequences included coronal LAVA-flex and time course of axial T1- weighted LAVA. COMPARISON: CT abdomen and pelvis dated 06/21/2025. FINDINGS: ABDOMEN MRI: Craniocaudal span of the liver measures 16 cm. Spleen measures 8 cm in length. No abnormal enhancement within the liver on postcontrast study. ABDOMEN MRCP: No evidence of gallstones. No calculi in the diaphragmatic and extrahepatic bile ducts. Common bile duct measures 8 mm in diameter. Pancreatic duct is dilated in the head of the pancreas and body and tail of the pancreas measuring up to 9 mm in diameter. No evidence of pancreatic calculi. No evidence of stricture of the pancreatic duct near the confluence with the common bile duct is noted. No evidence of peripancreatic inflammation. IMPRESSION: 1. No evidence of gallstones. Borderline dilated extrahepatic bile ducts. 2. Diffusely dilated pancreatic duct to the confluence with the common bile duct with stricture of the pancreatic duct at this level. No evidence of pancreatic calculi are noted. Endoscopy/biopsy is suggested to ensure benign process. Stent placement can be done at the same sitting. 3. No focal lesions of the liver and spleen. Mild hepatomegaly. Reviewed, dictated and finalized at location T. [employer] FINANCIAL COUNSELOR IMPRESSION: 1. No evidence of gallstones. Borderline dilated extrahepatic bile ducts. 2. Diffusely dilated pancreatic duct to the confluence with the common bile judy t with stricture of the pancreatic duct at this level. No evidence of pancreati c calculi are noted. Endoscopy/biopsy is suggested to ensure benign process. St ent placement can be done at the same sitting. 3. No focal lesions of the liver and spleen. Mild hepatomegaly.
--- NOTE | ~2025-06-21 | CT_ITS ---
EXAM/PROCEDURE: CT abdomen pelvis w con HISTORY: abdominal pain COMPARISON: February 14, 2020 TECHNIQUE: IV contrast enhanced CT of the abdomen and pelvis performed. FINDINGS: 2.1 x 1.8 cm lesion in the upper pole right kidney, image 57 series 3 suspicious for possible small renal cell carcinoma. No hydronephrosis or other renal lesions masses seen. Nodular changes in the adrenal glands stable consistent with benign adenomas. Liver stomach spleen stable. Pancreatic duct is again noted to be measuring up to 8.5 mm. No discrete lesion or mass seen. No gross CT evidence of cholelithiasis or inflamed gallbladder. No mesenteric or retroperitoneal lymphadenopathy or masses seen. Small fat-containing inguinal hernia. Uterus and adnexal regions unremarkable. Focal area of inflammation and wall thickening in the proximal sigmoid colon just past the junction with the descending colon noted with possible microperforation. No abscess or other free air seen. The bones appear intact. IMPRESSION: 1. Findings consistent with sigmoidal diverticulitis with possible microperforation but no abscess or gross pneumoperitoneum. 2. 1.8 cm enhancing lesion in the upper pole the right kidney concerning for possible renal cell carcinoma. Correlation with MRI recommended. 3. Chronic dilatation of the pancreatic duct which is slightly more prominent then on the 2019 exam. Consider MRCP for further evaluation. NOTE: Preliminary radiologist report provided by [facility] radiologist/physician. Reviewed, dictated and finalized at location A. PHONE SUPERVISOR IMPRESSION: 1. Findings consistent with sigmoidal diverticulitis with possible microperfora tion but no abscess or gross pneumoperitoneum. 2. 1.8 cm enhancing lesion in the upper pole the right kidney concerning for po ssible renal cell carcinoma. Correlation with MRI recommended. 3. Chronic dilatation of the pancreatic duct which is slightly more prominent t hen on the 2019 exam. Consider MRCP for further evaluation. NOTE: Preliminary radiologist report provided by [facility] radiologist/physician.
[2025-06-21 01:31] LABS: Add Urine Microscopic? YES; Appearance Urine Cloudy (Clear); Glucose Urine UA 3+ mg/dL (Negative); Leukocyte Esterase Ur 2+ LEU/UL (Negative); Nitrate Urine Negative (Negative); Non Pathogenic Casts 0-2; Specific Grav Ur 1.030 (1.001-1.035)
[2025-06-21 01:36] LABS: Alanine Aminotransferase 16 U/L (6-35); Albumin Level 4.4 g/dL (3.5-5.1); Alkaline Phosphatase 114 U/L (38-126); Anion Gap 12 mmol/L (4-12); Aspartate Amino Transferase 28 U/L (14-36); Bilirubin,Total 0.7 mg/dL (0.2-1.3); Blood Urea Nitrogen 12 mg/dL (7-17); Calcium 9.2 mg/dL (8.4-10.2); Carbon Dioxide 20 mmol/L (22-30); Chloride 106 mmol/L (98-107); Estimated CRCL calculation 52 ml/min; Estimated Glomerular Filt Rate 60; Glucose 141 mg/dL (65-110); Lipase 82 U/L (23-300); Potassium 3.3 mmol/L (3.4-5.0); Sodium 138 mmol/L (137-145); Total Protein 7.9 g/dL (6.3-8.2)
[2025-06-21 01:53] LABS: Hematocrit 39.1 % (37.0-47.0); Hemoglobin 12.8 g/dL (12.0-15.0); Immature Granulocyte Percent A 0.7 % (0-0.5); Lymphocytes Absolute Auto 1.72 K/mm3 (0.9-3.2); Mean Corpuscular HGB Conc 32.7 g/dl (32-36); Mean Corpuscular Hemoglobin 31.3 pg (26-34); Mean Corpuscular Volume 95.6 fl (80-100); Nucleated Red Blood Cells Absolute Auto 0.000 K/mm3 (0.0-0.012); Nucleated Red Blood Cells Perc 0.0 % (0.0-0.2); Platelet Count Result 244 k/mm3 (150-375); Red Blood Count 4.09 M/mm3 (4.2-5.4); White Blood Count 20.1 K/mm3 (4.5-10.0)
--- OUTSIDE RECORDS SUMMARY | 2025-06-21 02:44 | XMS_ITS | Clinical Summary ---
Author Organization [place] [id number] [facility] Address [address] [place] [address] Care Team Providers Care Manager Medicare Name Role Phone Kalen Correa MD Primary Care Provider Allergies Active Allergy Reactions Criticality Noted Date Comments Codeine Itching Low Medications carvediloL (COREG) 6.25 mg tabletIndicatio ns:hypertension Take 1 tablet (6.25 mg total) by mouth 2 (two) times a day with meals 0 Active clopidogreL (PLAVIX) 75 mg tabletIndicatio ns:Thrombosis Prevention after PCI Take 1 tablet (75 mg total) by mouth every morning 0 Active Vitamin D2 1,250 mcg (50,000 unit) capsuleIndicati ons:Vitamin D Deficiency Take 50,000 Units by mouth once a week Takes on Fridays 0 Active glimepiride (AMARYL) 4 mg tabletIndicatio ns:type 2 diabetes mellitus Take 1 tablet (4 mg total) by mouth every morning 0 Active hydroCHLOROthia zide (HYDRODIURIL) 25 mg tabletIndicatio ns:hypertension Take 25 mg by mouth every morning 0 Active lisinopriL (PRINIVIL,ZESTR IL) 10 mg tabletIndicatio ns:hypertension Take 1 tablet (10 mg total) by mouth every morning [address] (PROTONIX) 20 mg EC tabletIndicatio ns:acid reflux Take 1 tablet (20 mg total) by mouth every morning 0 Active pioglitazone (ACTOS) 30 mg tabletIndicatio ns:type 2 diabetes mellitus Take 1 tablet (30 mg total) by mouth every morning 0 Active rosuvastatin (CRESTOR) 40 mg tabletIndicatio ns:hyperlipidem ia Take 1 tablet (40 mg total) by mouth every morning 0 Active Jardiance 10 mg tabletIndicatio ns:type 2 diabetes mellitus Take 1 tablet (10 mg total) by mouth every morning 0 Active traMADoL (ULTRAM) 50 mg tabletIndicatio ns:Pain Take 50 mg by mouth nightly 0 Active acetaminophen (TYLENOL ARTHRITIS PAIN ORAL)Indication s:pain Take 1,000 mg by mouth 4 (four) times a day as needed (pain) Active simethicone (GAS-X) 125 mg capsule Take 180 mg by mouth every 6 (six) hours as needed for flatulence Active calcium carb/vit D3/minerals (CALCIUM-VITAMI N D ORAL)Indication s:supplement Take 1 capsule by mouth every morning Active aspirin 81 mg enteric coated tabletIndicatio ns:prevention of thrombosis Take 1 tablet (81 mg total) by mouth every morning Active dulaglutide (TRULICITY) 1.5 mg/0.5 mL pen injector Inject 1 mL (3 mg total) under the skin Active ezetimibe (ZETIA) 10 mg tablet Take 1 tablet (10 mg total) by mouth daily Active Active Problems Problem Noted Date Diagnosed Date Acquired absence of right breast 11/08/2020 Ductal carcinoma in situ (DCIS) of right breast 11/08/2020 Vitamin D deficiency 05/09/2020 Uncontrolled type 2 diabetes mellitus 05/09/2020 Tobacco user 05/09/2020 Malignant neoplasm of upper- outer quadrant of right breast in female, estrogen receptor positive 09/27/2019 Positive antinuclear antibody 01/10/2016 Encounters Date Type Department Care Team Description 05/17/2025 Telephone [facility] Cardiology [facility] [address] [phone] Sunny Lyman MD 05/11/2025 Results Follow-Up [facility] Cardiology [facility] [address] [place] [address] Brunilda Campos MA [place] MPI SPECT (Rest and/or Stress) Multiple Studies 05/10/2025 10:21 AM CDT - 05/10/2025 11:59 PM CDT Hospital Encounter [facility] 2 Nuclear Medicine [address] [place] [phone] Discharge Disposition: Discharge to home or self care 05/10/2025 10:21 AM CDT - 05/10/2025 11:59 PM CDT Hospital Encounter [facility] 2 Nuclear Medicine [address] [place] [phone] Discharge Disposition: Discharge to home or self care 05/10/2025 10:21 AM CDT - 05/10/2025 11:59 PM CDT Hospital Encounter [place] [address] Nuclear Medicine [address] [place] [phone] Discharge Disposition: Discharge to home or self care 05/10/2025 10:20 AM CDT - 05/10/2025 11:59 PM CDT Hospital Encounter [facility] 2 Nuclear Medicine [address] [place] [phone] Preoperative clearance; Coronary artery disease of [place] artery of [place] heart with stable angina pectoris; Essential hypertension, benign; Mixed hyperlipidemia; Dyspnea on exertion; Tobacco use Discharge Disposition: Discharge to home or self care 04/28/2025 12:52 PM CDT - 04/28/2025 11:59 PM CDT [facility] [address] [place] [phone] Preoperative clearance; Coronary artery disease of [place] artery of [place] heart with stable angina pectoris; Essential hypertension, benign; Mixed hyperlipidemia; Dyspnea on exertion; Tobacco use Discharge Disposition: Discharge to home or self care 04/14/2025 Results Follow-Up [facility] Medical [facility] Cardiology [address] [place] [phone] Sunny Lyman MD SCAN - LABS 04/07/2025 Orders Only [facility] Health Information Management [address] [place] [phone] Sunny Lyman MD 03/22/2025 10:00 AM CDT Office Visit [facility] Medical [facility] Cardiology [facility] [address] [place] [address] Sunny Lyman MD Coronary artery disease of [place] artery of [place] heart with stable angina pectoris (Primary Dx); Preoperative clearance; Essential hypertension, benign; Mixed hyperlipidemia; Dyspnea on exertion; Tobacco use from Last 3 Months Immunizations Immunization Administration Dates Next Due Influenza, Quadrivalent, Split, Intramuscular Surgical History Surgery Date Site/Laterality Comments CARDIAC STENT PLACEMENT 2013, 2014 x3 stents TONSILLECTOMY 08/04/1963 - 08/03/1964 CARDIAC CATHETERIZATION 2013, 2014 COLONOSCOPY 02/02/2020 - 03/03/2020 ESOPHAGOGASTRODUODENOSCOPY 02/02/2020 - 03/03/2020 MASTECTOMY 05/04/2020 - 06/03/2020 Right simple Medical History Medical History Date Comments Hypertension Type 2 diabetes mellitus Coronary artery disease Myocardial infarction (HCC) PONV (postoperative nausea and vomiting) GERD (gastroesophageal reflux disease) Breast cancer (HCC) Right breast Family History Medical History Relation Name Comments Cancer Brother Family history of malignant neoplasm - (Added by TW Conv) Anesthesia problems Neg Hx Relation Name Status Comments Brother Social History Tobacco Use Types Packs/Day Years Used Date Smoking Tobacco: Every Day Cigarettes 0.5 56.9 Started: 1968 Smokeless Tobacco: Never Alcohol Use Standard Drinks/Week Comments Yes 12 (1 standard drink = 0.6 oz pu re alcohol) SOCIALLY AUDIT-C Answer Date Recorded Q1: How often do you have a drink containing alc ohol? 2-3 times a week 12/25/2020 Q2: How many drinks containi ng alcohol do you have on a typical day when you are drinking? 1 or 2 12/25/2020 Q3: How often do you have si x or more drinks on one occasion? Less than monthly 12/25/2020 Comments No Sex and Gender Information Value Date Recorded Sex Assigned at Not on file Legal Sex Female 3:00 AM FINISHING TRIMMER Gender Identity Not on file Sexual Orientation Not on file Last Filed Vital Signs Vital Sign Reading Time Taken Comments Blood Pressure 126/70 03/22/2025 11:11 AM CDT Pulse 67 03/22/2025 11:11 AM CDT Temperature 36.9 C (98.4 F) 05/23/2020 10:50 AM CDT Respiratory Rate 16 03/22/2025 11:11 AM CDT Oxygen Saturation 99% 03/22/2025 11:11 AM CDT Inhaled Oxygen Concentration - - Weight 77.1 kg (170 lb) 12/25/2020 5:13 PM CDT Height 162.6 cm (5' 4) 12/25/2020 5:13 PM CDT Body Mass Index 29.18 12/25/2020 5:13 PM CDT Plan of Treatment Health Maintenance Due Date Last Done Comments Albumin Creatinine Ratio, Urine 1960 Colon Cancer Screening-Colonoscopy 1960 Depression Screening 1960 Hemoglobin A1C 1960 Hepatitis C Screening 1960 Osteoporosis Screening-Bone Density Scan 1960 eGFR 1960 Dilated Eye Exam 1960 Foot Exam 1960 Lipid Panel 1960 Hepatitis B Screening 1976 Lung Cancer Screening 2008 Zoster Vaccine (1 of 2) 2008 Pneumococcal vaccine 65+ (2 of 2 - PCV) 05/20/2020 05/20/2019, 10/02/2012 Fall Risk Assessment 12/25/2021 12/25/2020 Breast Cancer Screening-Mammogram 07/11/2023 07/11/2022, 05/30/2021, 05/03/2020 Well Visit 65+ 2023 Covid-19 Vaccine (5 - 2024-2 6 season) 2025 01/04/2022, 06/14/2021, 10/18/2020, Additional history exists Influenza Vaccine (#1) 2025 , 05/02/2023, 05/09/2022, Additional history exists DTaP/Tdap/Td Vaccine (3 - Td or Tdap) 02/11/2034 02/12/2024, 11/24/2013 Medical Devices Implanted Type Area Superintendent Operating Device Identifier Shelf Expiration Date Model / Serial / Lot Cardiac Stents X 3 N/A: Heart [employer] [id number] Magtrace Liquid Marker 10 Vial Carton - [id number] Implanted:Qty: 1 on 05/09/2020 by Hermant, Liza Rich MD PhD at [facility] [employer] 05/03/2022 [id number] / / [id number] Procedures Procedure Name Priority Date/Time Associated Diagnosis Comments STRESS TEST FOR DUAL READ Schedule Routine, Read Routine (OP Routine) 05/10/2025 12:53 PM CDT Preoperative clearance Coronary artery disease of [place] artery of [place] heart with stable angina pectoris Essential hypertension, benign Mixed hyperlipidemia Dyspnea on exertion Tobacco use NM MPI SPECT (REST AND/OR STRESS) MULTIPLE STUDIES Schedule Routine, Read Routine (OP Routine) 05/10/2025 12:53 PM CDT Preoperative clearance Coronary artery disease of [place] artery of [place] heart with stable angina pectoris Essential hypertension, benign Mixed hyperlipidemia Dyspnea on exertion Tobacco use TRANSTHORACIC ECHO (TTE) COMPLETE W DOPPLER/CF WO CONTRAST Routine 04/28/2025 1:50 PM CDT Preoperative clearance Coronary artery disease of [place] artery of [place] heart with stable angina pectoris Essential hypertension, benign Mixed hyperlipidemia Dyspnea on exertion Tobacco use SCAN - LABS 04/07/2025 ECG 12-LEAD Routine 03/22/2025 11:18 AM CDT Coronary artery disease of [place] artery of [place] heart with stable angina pectoris SCREENING MAMMOGRAM LEFT W [place] UNILATERAL ONLY Schedule Routine, Read Routine (OP Routine) 07/11/2022 11:35 AM FINISHING TRIMMER Screening mammogram, encounter for from Last 3 Months or Most Recently Relevant to Health Maintenance Results * NM MPI SPECT (Rest and/or Stress) Multiple Studies (05/10/2025 12:53 PM CDT) Anatomical Region Laterality Modality Body N/A Nuclear Medicine Impressions 05/10/2025 9:54 PM CDT 1. No scintigraphic evidence of myocardial ischemia. 2. Normal left ventricular size and systolic function. I personally supervised and interpreted the stress test. Copy to AjaoKalen MD John Lehman, MD 05/10/2025 Narrative 05/10/2025 9:54 PM CDT Patient Id: Thuy Root is a 64 y.o. female. MR#: [id number] Study date: 05/10/2025 EXAM DESCRIPTION: NM MPI SPECT (REST AND/OR STRESS) MULTIPLE STUDIES RADIOPHARMACEUTICAL: Rest: 11 mCi Tc-99m tetrofosmin via left hand IV site Pharmacologic Stress: 33 mCi Tc-99m tetrofosmin via left hand IV site REASON FOR STUDY: exertional dyspnea which can be an anginal equivalent, coronary artery disease status post PCI with stents, hypertension, hyperlipidemia TECHNIQUE: After informed consent, standard myocardial perfusion SPECT images were obtained after resting tracer injection. Subsequently, an intravenous infusion of regadenoson was performed. Standard myocardial perfusion images were obtained after tracer injection at the peak effect of the drug. STRESS PORTION AND EKG: See separately dictated report for stress portion and EKG. FINDINGS: Study quality: No motion artifact. Image quality is adequate at rest and at stress. No significant fixed or reversible myocardial perfusion defects are seen. Gated post-stress images demonstrate normal left ventricular wall thickening, without global or focal wall motion abnormality. The left ventricular volume is normal . The left ventricular ejection fraction is 86 % (normal >45%). There is no evidence of transient ischemic dilation with calculated TID ratio of 0.95 . Sunny Lyman MD IMG NM PROCEDURES Final Res ult * Stress Test for Myocardial Perfusion (05/10/2025 12:53 PM CDT) Anatomical Region Laterality Modality Nuclear Medicine Impressions 05/10/2025 12:15 PM CDT 1. EKG portion of the stress test is negative for ischemia. 2. Nuclear images pending. I personally supervised and interpreted the stress test. Copy to Kalen Correa MD John Lehman, MD 05/10/2025 Narrative 05/10/2025 12:15 PM CDT Patient Id: Thuy Root is a 64 y.o. female. MR#: [id number] Study date: 05/10/2025 EXAM DESCRIPTION: STRESS LEXISCAN MYOVIEW TECHNIQUE: Baseline EKG: Normal sinus rhythm, poor R-wave progression. Baseline blood pressure was 116/72 , and baseline heart rate was 69 . Stress test was performed according to Lexiscan protocol. Blood pressure after Lexiscan infusion was 142/62, and post infusion heart rate was 107. There were no EKG changes suggesting ischemia. There were no arrhythmias. SYMPTOMS: Patient denied chest pain or shortness of breath. us Sunny Lyman MD CV STRESS PROCEDURES Final Result * TRANSTHORACIC ECHO (TTE) COMPLETE W DOPPLER/CF WO CONTRAST (04/28/2025 1:50 PM CDT) Estimated EF 60-65 % CONS SCIMAGE Anatomical Region Laterality Modality Ultrasound 04/28/2025 1:24 PM CDT Narrative 05/02/2025 10:29 AM CDT Transthoracic Echocardiographic Report Patient Name: THUY ROOT R : 1960 (64y 7m) Sex: F Study Date: 04/28/2025 01:24:21 PM Ht(Inch): 64 Wt(Lb): 170 BSA: 1.87 Magazine Repairer: Tess Cutler HANNAH Order Provider: SUNNY LYMAN Heart Rate: 77 BMI: 29.18 Ref Provider: SUNNY LYMAN PROCEDURES: Echocardiographic Report: ([id number]) Transthoracic complete echo, 2D, spectral and tissue Doppler, color flow Doppler, M-mode. Technically difficult study due to: Technically difficult study due to underlying lung condition / current smoker. INDICATIONS: Z01.818 Encounter for other preprocedural examination, I25.118 Atherosclerotic heart disease of [place] coronary artery with other forms of angina pectoris, I10 Essential (primary) hypertension, E78.2 Mixed hyperlipidemia, R06.09 Other forms of dyspnea, and Z72.0 Tobacco use. FINDINGS: Left Ventricle: Normal left ventricular cavity size. Normal Left ventricular wall thickness. Normal left ventricular systolic function. The Ejection Fraction is visually estimated to be 60-65 %. Diastolic Function E to E' ratio is >15 suggesting a high pulmonary wedge pressure and LV diastolic dysfunction. Regional Wall Motion: There are no regional wall motion abnormalities. Right Ventricle: Normal right ventricular size. Normal right ventricular systolic function. Left Atrium: The left atrium is normal in size. Right Atrium: The right atrium is normal in size. Atrial Septum: No shunt by color Doppler. Mitral Valve: Normal mitral valve leaflet structure. There is trace mitral valve regurgitation. No mitral valve stenosis. NO mitral valve prolapse seen. Aortic Valve: Trileaflet aortic valve. No aortic regurgitation seen. No aortic valve stenosis. The mean transaortic gradient is 8 mmHg. Tricuspid Valve: The tricuspid valve demonstrates normal leaflet structure. No tricuspid regurgitation seen. PASP cannot be evaluated due to lack of adequate TR jet. Pulmonic Valve: Pulmonic Valve not well visualized due to poor echo windows. No evidence of pulmonic regurgitation. Pericardium: Normal pericardium without evidence of pericardial effusion. No pericardial effusion noted. Aorta: Normal aortic root. The aortic Sinus is normal in size. IVC: IVC Not well visualized due to poor echo windows. CONCLUSIONS: 1. Technically Difficult Study. 2. Normal left ventricular systolic function. The Ejection Fraction is visually estimated to be 60-65 %. Diastolic Function E to E' ratio is >15 suggesting a high pulmonary wedge pressure and LV diastolic dysfunction. 3. There is trace mitral valve regurgitation. 4. PASP cannot be evaluated due to lack of adequate TR jet. MEASUREMENTS: 2D/MM Value Range Doppler Value LVIDd 2D 3.92 cm [ 3.50 - 5.70 ] AV Peak [place] 1.95 m/s LVIDs 2D 2.86 cm [ 3.10 - 4.60 ] AV Peak PG 15.21 mmHg IVSd 2D 1.08 cm [ 0.60 - 1.20 ] AV Mean PG 8.00 mmHg LVPWd 2D 1.11 cm [ 0.60 - 1.10 ] AV VTI 38.90 cm LV Thickness Ratio 0.97 LVOT Peak [place] 1.27 m/s LV Mass 2D 142.19 g LVOT Peak PG 6.45 mmHg LV Mass Index 2D 76.20 g/m2 LVOT Mean PG 3.00 mmHg RWT 0.57 LVOT VTI 26.90 cm EDV Mod BP 54.90 ml [ 46.00 - 106.00 ] LVOT Diam 2.00 cm LV EDV Index 29.42 ml/m2 SV LVOT 84.00 cm3 ESV Mod BP 25.40 ml [ 14.00 - 42.00 ] KALYAN VTI 2.17 cm2 Visually Estimated EF 60-65 % KALYAN Vmax 2.05 cm2 LA Dimension 2D 3.00 cm [ 1.90 - 4.00 ] LVOT/AV VTI 0.69 - Dimensionless index (DVI) LA Length 2C 5.08 cm MV E Peak [place] 1.37 m/s LA Length 4C 5.35 cm MV A Peak [place] 1.44 m/s LA Volume BP 52.90 ml MV E/A 1.00 ratio LA Volume Index 28.35 ml/m2 [ 16.00 - 34.00 ] MV Decel Time 218.00 msec TAPSE 2.17 cm [ 1.71 - 5.00 ] Med E` [place] 0.06 m/s AoR Diam 2D 2.70 cm [ 2.00 - 3.70 ] Lat E` [place] 0.05 m/s Ao Root Index 1.45 cm/m2 [ 1.00 - 2.00 ] Average E/E` 2490.91 TV Peak [place] 0.51 m/s TV Peak PG 1.04 mmHg RV S` 11.50 cm/sec PV Peak [place] 0.94 m/s PV Peak PG 3.53 mmHg - ATTESTATION: I have reviewed and interpreted the pertinent images and measurements of this study. I attest to the conclusions in the final report that is provided above. DISCLAIMER: The study images and the final report will be retained in the patient chart by the Echo Laboratory for the legally required time period. This chart constitutes the legal record of any testing performed. Electronically Signed By: Sunny Lyman MD 05/02/2025 10:28:38 AM CDT Procedure Note Sunny Lyman MD - 05/02/2025 Transthoracic Echocardiographic Report Patient Name: THUY ROOT R : 1960 (64y 7m) Sex: F Study Date: 04/28/2025 01:24:21 PM Ht(Inch): 64 Wt(Lb): 170 BSA: 1.87 Magazine Repairer: Tess Cutler HANNAH Order Provider: SUNNY LYMAN Heart Rate: 77 BMI: 29.18 Ref Provider: SUNNY LYMAN PROCEDURES: Echocardiographic Report: ([id number]) Transthoracic complete echo, 2D,spectral and tissue Doppler, color flow Doppler, M-mode. Technically difficult study due to: Technically difficult study due tounderlying lung condition / current smoker. INDICATIONS: Z01.818 Encounter for other preprocedural examination, I25.118Atherosclerotic heart disease of [place] coronary artery with other forms of angina pectoris, [id number] (primary) hypertension, E78.2 Mixed hyperlipidemia, R06.09 Other forms ofdyspnea, and Z72.0 Tobacco use. FINDINGS: Left Ventricle: Normal left ventricular cavity size. Normal Leftventricular wall thickness. Normal left ventricular systolic function. The EjectionFraction is visually estimated to be 60-65 %. Diastolic Function E to E' ratio is >15suggesting a high pulmonary wedge pressure and LV diastolic dysfunction. Regional Wall Motion: There are no regional wall motion abnormalities. Right Ventricle: Normal right ventricular size. Normal right ventricularsystolic function. Left Atrium: The left atrium is normal in size. Right Atrium: The right atrium is normal in size. Atrial Septum: No shunt by color Doppler. Mitral Valve: Normal mitral valve leaflet structure. There is trace mitralvalve regurgitation. No mitral valve stenosis. NO mitral valve prolapse seen. Aortic Valve: Trileaflet aortic valve. No aortic regurgitation seen. Noaortic valve stenosis. The mean transaortic gradient is 8 mmHg. Tricuspid Valve: The tricuspid valve demonstrates normal leafletstructure. No tricuspid regurgitation seen. PASP cannot be evaluated due to lack of adequate TRjet. Pulmonic Valve: Pulmonic Valve not well visualized due to poor echowindows. No evidence of pulmonic regurgitation. Pericardium: Normal pericardium without evidence of pericardial effusion.No pericardial effusion noted. Aorta: Normal aortic root. The aortic Sinus is normal in size. IVC: IVC Not well visualized due to poor echo windows. CONCLUSIONS: 1. Technically Difficult Study. 2. Normal left ventricular systolic function. The Ejection Fraction isvisually estimated to be 60-65 %. Diastolic Function E to E' ratio is >15 suggesting a highpulmonary wedge pressure and LV diastolic dysfunction. 3. There is trace mitral valve regurgitation. 4. PASP cannot be evaluated due to lack of adequate TR jet. MEASUREMENTS: 2D/MM Value Range DopplerValue LVIDd 2D 3.92 cm [ 3.50 - 5.70 ] AV Peak Vel1.95 m/s LVIDs 2D 2.86 cm [ 3.10 - 4.60 ] AV Peak PG15.21 mmHg IVSd 2D 1.08 cm [ 0.60 - 1.20 ] AV Mean PG8.00 mmHg LVPWd 2D 1.11 cm [ 0.60 - 1.10 ] AV VTI38.90 cm LV Thickness Ratio 0.97 LVOT PeakVel 1.27 m/s LV Mass 2D 142.19 g LVOT Peak PG6.45 mmHg LV Mass Index 2D 76.20 g/m2 LVOT Mean PG3.00 mmHg RWT 0.57 LVOT VTI26.90 cm EDV Mod BP 54.90 ml [ 46.00 - 106.00 ] LVOT Diam2.00 cm LV EDV Index 29.42 ml/m2 SV LVOT84.00 cm3 ESV Mod BP 25.40 ml [ 14.00 - 42.00 ] KALYAN VTI2.17 cm2 Visually Estimated EF 60-65 % KALYAN Vmax2.05 cm2 LA Dimension 2D 3.00 cm [ 1.90 - 4.00 ] LVOT/AV VTI0.69 - Dimensionless index (DVI) LA Length 2C 5.08 cm MV E PeakVel 1.37 m/s LA Length 4C 5.35 cm MV A PeakVel 1.44 m/s LA Volume BP 52.90 ml MV E/A1.00 ratio LA Volume Index 28.35 ml/m2 [ 16.00 - 34.00 ] MV DecelTime 218.00 msec TAPSE 2.17 cm [ 1.71 - 5.00 ] Med E` Vel0.06 m/s AoR Diam 2D 2.70 cm [ 2.00 - 3.70 ] Lat E` Vel0.05 m/s Ao Root Index 1.45 cm/m2 [ 1.00 - 2.00 ] Average E/E`2490.91 TV Peak [place] 0.51 m/s TV Peak PG 1.04 mmHg RV S` 11.50 cm/sec PV Peak [place] 0.94 m/s PV Peak PG 3.53 mmHg - ATTESTATION: I have reviewed and interpreted the pertinent images and measurements ofthis study. I attest to the conclusions in the final report that is provided above. DISCLAIMER: The study images and the final report will be retained in the patientchart by the Echo Laboratory for the legally required time period. This chart constitutesthe legal record of any testing performed. Electronically Signed By: Sunny Lyman MD 05/02/2025 10:28:38 AM CDT Sunny Lyman MD CV ECHO PROCEDURES Final Re sult * SCAN - LABS (04/07/2025) us Sunny Lyman MD Final Resul t * ECG 12 lead (03/22/2025 11:18 AM CDT) Sunny Lyman MD ECG ORDERABLES Final Resul t * Screening Mammogram Left [place] Unilateral Only (07/11/2022 11:35 AM FINISHING TRIMMER) Anatomical Region Laterality Modality Breast Left Mammography Narrative 07/12/2022 11:00 AM FINISHING TRIMMER Mammogram Technique: Left Breast Digital Breast Tomosynthesis, Unilateral C-view 2D Screening mammogram. Views obtained: bilateral craniocaudal and bilateral mediolateral oblique. Computer Aided Detection was performed. Mammogram Findings: The present examination has been compared to prior imaging studies performed at [facility] on 09/20/2019, 05/03/2020 and 05/30/2021. There are scattered areas of fibroglandular density. There is no suspicious abnormality in the left breast. Patient status post contralateral mastectomy for personal history of breast cancer. Impression: There is no mammographic evidence of malignancy. Annual screening mammography is recommended. OVERALL FINAL ASSESSMENT: BI-RADS CATEGORY 1: Negative. Procedure Note Anne Craft MD - 07/12/2022 Mammogram Technique: Left Breast Digital Breast Tomosynthesis, Unilateral C-view 2D Screening mammogram. Views obtained: bilateral craniocaudal and bilateral mediolateral oblique. Computer Aided Detection was performed. Mammogram Findings: The present examination has been compared to prior imaging studies performed at [facility] on 09/20/2019, 05/03/2020 and 05/30/2021. There are scattered areas of fibroglandular density. There is no suspicious abnormality in the left breast. Patient status post contralateral mastectomy for personal history ofbreast cancer. Impression: There is no mammographic evidence of malignancy. Annual screening mammography is recommended. OVERALL FINAL ASSESSMENT: BI-RADS CATEGORY 1: Negative. us Self Screening Mammogram IMG MAMMO PROCEDURES Fi nal Result from Last 3 Months or Most Recently Relevant to Health Maintenance Insurance [facility] Care Teams Manager Medicare Relationship Specialty Start Date End Date Kalen Correa MD 71 [place] [id number] PCP - General Internal Medicine 06/04/19
[2025-06-21] MEDS: MORPHINE SULFATE (*CRX) 4 MG/ML INJ IV PUSH ×3 (03:15→19:32)
[2025-06-21] MEDS: SODIUM CHLORIDE 0.9% IV 1,000 ML 999 ML IV CONT (03:15)
[2025-06-21] MEDS: ONDANSETRON INJ 4 MG/2 ML VIAL IV PUSH ×4 (03:15→19:28)
--- NOTE | 2025-06-21 04:41 | ED.GENADULT ---
HPI - General Adult General Chief complaint: Abdominal Pain Stated complaint: Lower ab pain since friday Time Seen by Provider: 06/21/25 02:54 History of Present Illness HPI narrative: patient is 64-year-old female who presents emergency department with chief complaint of abdominal pain patient reports that since Friday she has been having pain in her lower abdomen the patient states she has had some diarrhea reports that she has also had nausea but no vomiting the patient states she has had several bouts of diarrhea with this and reports that her abdomen feels very uncomfortable in the low pelvis Related Data Home Medications ?Medication ?Instructions ?Recorded ?Confirmed ?Last Taken ?Type acetaminophen 650 mg 650 mg PO Q8H PRN Pain 02/15/20 03/13/22 Unknown History tablet,extended release (Tylenol Arthritis Pain) carvedilol 6.25 mg tablet 6.25 mg PO BID 02/15/20 03/13/22 Unknown History glimepiride 4 mg tablet 4 mg PO DAILY 02/15/20 03/13/22 Unknown History hydrochlorothiazide 25 mg tablet 25 mg PO DAILY 02/15/20 03/13/22 Unknown History lisinopril 10 mg tablet 10 mg PO DAILY 02/15/20 03/13/22 Unknown History pantoprazole 20 mg tablet,delayed 20 mg PO DAILY 02/15/20 03/13/22 Unknown History release pioglitazone 30 mg tablet 30 mg PO DAILY 02/15/20 03/13/22 Unknown History rosuvastatin 40 mg tablet 40 mg PO DAILY 02/15/20 03/13/22 Unknown History aspirin 81 mg tablet 81 mg PO DAILY 03/01/22 03/13/22 Unknown History calcium 600 mg (as 1 tablet PO DAILY 03/01/22 03/13/22 Unknown History carbonate)-vitamin D3 10 mcg (400 unit) tablet (Calcium 600 + D(3)) clopidogrel 75 mg tablet 75 mg PO DAILY 03/01/22 03/13/22 Unknown History empagliflozin 25 mg tablet 25 mg PO DAILY 03/01/22 03/13/22 Unknown History (Jardiance) Allergies Allergy/AdvReac Type Severity Reaction Status Date / Time codeine Allergy Severe Hives Verified 06/21/25 00:50 Review of Systems Review of Systems: A 10 system review of systems was completed on the patient and is negative except for what is stated in the HPI. Nursing and ancillary documentation was reviewed. [facility] Past Medical History Medical History Atrophic gastritis Abnormal computed tomography of cecum and terminal ileum Ankle fracture Breast cancer Diabetes Family History Family History Mother , Diet after complications of surgery for perforated viscus Acute myocardial infarction Sibling Asthma Father , Thought to have in his 50s unknown cause in his sleep No problems noted. Social History Social History Social History: Presently lives alone. Occupational exposure Years smoked: 45 Smoking status: Current every day smoker Tobacco type: cigarettes Additional smoking assessment comments: Has smoked for some 40 years presently at half pack a day Alcohol intake: current Drinks per week: 4 Alcohol use details: BEERS/WINE Substance use: current Substance use type: marijuana Other substance usage details: VAPE PEN OCC. FOR PAIN Living arrangements: with family Gender identity (if verbalized by the patient): Female Spiritual care concerns: No Course Course Emergency Course: GENERAL: Well-appearing, well-nourished, and in no acute distress. HEAD: Normocephalic, atraumatic. EYES: PERRLA and EOMI. ENT: Nares clear, no rhinorrhea or epistaxis. Mucous membranes moist. NECK: Supple. CHEST: Clear to auscultation. No respiratory distress. HEART: Regular rate and rhythm. No murmur heard. Normal peripheral pulses. ABDOMEN: Soft, Diffuse tenderness to palpation, nondistended, normal active bowel sounds. EXTREMITIES: Normal range of motion. No edema. SKIN: Warm, dry, no rash. NEURO: No focal deficits. Alert and oriented x3. PSYCH: Normal mood and affect. Vital Signs Vital signs: Vital Signs Temperature 36.7 C 06/21/25 01:10 Pulse Rate 106 H 06/21/25 01:10 Respiratory Rate 16 06/21/25 01:10 Blood Pressure 147/86 H 06/21/25 01:10 Pulse Oximetry 100 06/21/25 01:10 Oxygen Delivery Room Air 06/21/25 01:10 Temperature 36.7 C 06/21/25 01:10 Pulse Rate 100 06/21/25 02:03 Respiratory Rate 16 06/21/25 02:03 Blood Pressure 138/68 06/21/25 02:03 Pulse Oximetry 99 06/21/25 02:03 Oxygen Delivery Room Air 06/21/25 01:10 Medical Decision Making [facility] Narrative Medical decision making narrative: differential diagnosis includes sepsis, UTI, diverticulitis, colitis, intra-abdominal abscess, appendicitis laboratory studies showed a white count of 20.1 lactic acid was normal electrolytes showed no significant abnormalities urinalysis showed greater than 100 white blood cells and 2+ leukocyte esterase CT scan of the abdomen pelvis showed a dilated common bile duct but also showed evidence of acute diverticulitis blood cultures were obtained on the patient lactic acid was normal patient given a dose of Zosyn in the emergency department and started on Zosyn the case was discussed with the hospitalist Vital Signs Vital Signs: Vital Signs Temperature 36.7 C 06/21/25 01:10 Pulse Rate 106 H 06/21/25 01:10 Respiratory Rate 16 06/21/25 01:10 Blood Pressure 147/86 H 06/21/25 01:10 Pulse Oximetry 100 06/21/25 01:10 Oxygen Delivery Room Air 06/21/25 01:10 Temperature 36.7 C 06/21/25 01:10 Pulse Rate 100 06/21/25 02:03 Respiratory Rate 16 06/21/25 02:03 Blood Pressure 138/68 06/21/25 02:03 Pulse Oximetry 99 06/21/25 02:03 Oxygen Delivery Room Air 06/21/25 01:10 Lab Data 06/21/25 01:18 06/21/25 01:18 Labs: Lab Results 06/21/25 06/21/25 Range/Units 01:18 03:15 WBC 20.1 H (4.5-10.0) K/mm3 RBC 4.09 L (4.2-5.4) M/mm3 Hgb 12.8 (12.0-15.0) g/dL Hct 39.1 (37.0-47.0) % MCV 95.6 (80-100) fl MCH 31.3 (26-34) pg MCHC 32.7 (32-36) g/dl RDW 15.0 H (11.5-14.5) % Plt Count 244 (150-375) k/mm3 MPV 9.4 (7.4-10.4) fl Immature Gran % (Auto) 0.7 H (0-0.5) % Neut % (Auto) 82.6 H (45.5-73.1) % Lymph % (Auto) 8.5 L (18.3-44.2) % [place] % (Auto) 7.9 (2.6-8.5) % Eos % (Auto) 0.1 (0-4.4) % Baso % (Auto) 0.2 (0.2-1.2) % Lymph # (Auto) 1.72 (0.9-3.2) K/mm3 [place] # (Auto) 1.6 H (0.1-0.6) K/mm3 Eos # (Auto) 0.0 (0-0.3) K/mm3 Baso # (Auto) 0.1 (0.0-0.1) K/mm3 Abs Immat Gran (auto) 0.14 H (0.00-0.031) K/mm3 Absolute Neuts (auto) 16.6 H (1.3-6.7) K/mm3 Absolute Nucleated RBC 0.000 (0.0-0.012) K/mm3 Nucleated RBC % 0.0 (0.0-0.2) % Sodium 138 (137-145) mmol/L Potassium 3.3 L (3.4-5.0) mmol/L Chloride 106 (98-107) mmol/L Carbon Dioxide 20 L (22-30) mmol/L Anion Gap 12 (4-12) mmol/L BUN 12 (7-17) mg/dL Creatinine 0.93 (0.7-1.0) mg/dL Estim Creat Clear Calc 52 ml/min Estimated GFR 60 (59 - ) Glucose 141 H (65-110) mg/dL Lactic Acid 0.8 (0.7-2.0) mmol/L Calcium 9.2 (8.4-10.2) mg/dL Total Bilirubin 0.7 (0.2-1.3) mg/dL AST 28 (14-36) U/L ALT 16 (6-35) U/L Alkaline Phosphatase 114 (38-126) U/L Total Protein 7.9 (6.3-8.2) g/dL Albumin 4.4 (3.5-5.1) g/dL Lipase 82 (23-300) U/L Urine Color Yellow (Yellow) Urine Appearance Cloudy H (Clear) Urine pH 5.5 (5.0-9.0) Ur Specific [place] 1.030 (1.001-1.035) Urine Protein 1+ H (Negative) mg/dL Urine Glucose (UA) 3+ H (Negative) mg/dL Urine Ketones 1+ H (Negative) mg/dL Ur Blood (Man) 3+ H (Negative) Urine Nitrate Negative (Negative) Urine Bilirubin Negative (Negative) Urine Urobilinogen 0.2 (<2.0) mg/dL Leukocyte Esterase Rfl 2+ H (Negative) AMELIA/UL Urine RBC 21-50 H (0-2) /hpf Urine WBC >100 H (0-3) /hpf Ur Squamous Epith Cells Occasional (Few) /hpf Urine Bacteria Trace /hpf Urine Casts 0-2 Discharge Plan Discharge Clinical Impression: Diverticulitis, Acute UTI, Leukocytosis Patient Disposition: Still a Patient Condition: Stable Instructions: Antibiotic Form Patient Language: Turkmen Prescriptions: No Action carvedilol 6.25 mg tablet 6.25 mg PO BID pantoprazole 20 mg tablet,delayed release (DR/EC) 20 mg PO DAILY lisinopril 10 mg Tablet 10 mg PO DAILY glimepiride 4 mg tablet 4 mg PO DAILY hydrochlorothiazide 25 mg tablet 25 mg PO DAILY pioglitazone 30 mg tablet 30 mg PO DAILY rosuvastatin 40 mg tablet 40 mg PO DAILY acetaminophen [Tylenol Arthritis Pain] 650 mg Tablet Extended Release 650 mg PO Q8H PRN (Reason: Pain) clopidogrel 75 mg tablet 75 mg PO DAILY Adult Low Dose Aspirin 81 mg Tablet 81 mg PO DAILY calcium carbonate-vitamin D3 [Calcium 600 + D(3)] 600 mg-10 mcg (400 unit) Tablet 1 tablet PO DAILY Jardiance 25 mg tablet 25 mg PO DAILY Follow-up/Referrals: Madeline,Adalid Higuera [Primary Care Provider] Time of Disposition: 04:44
[2025-06-21] MEDS: PIPERACILLIN/TAZOBACTAM SOD 3.375 GM in SODIUM CHLORIDE 0.9% IV 50 ML 100 ML IVPB ×4 (04:48→22:46)
--- NOTE | 2025-06-21 05:24 | WPCEDHO ---
ED Hand Off Checklist All vitals saved: Yes IV Site documented: Yes All med administrations documented: Yes Triage Note Triage Note Pt arrives w/ c/o lower abd pain 06/21/25 01:10 that comes and goes since friday. Pt abdomen distended. Pt reports nausea without vomiting. Allergies codeine Allergy (Severe, Verified 06/21/25 00:50) Hives itching Family History (Last Reviewed 06/21/25 @ 04:42 by Jean Claude Ward MD) Mother Acute myocardial infarction Sibling Asthma Father No problems noted. Administered/Completed Medications Discontinued Medications Sodium Chloride (Normal Saline Iv) 1,000 mls @ 999 mls/hr IV CONT .Q1H1M STA Stop: 06/21/25 04:04 Last Admin: 06/21/25 03:15 Dose: 999 mls/hr Documented By: JENNIFER Piperacillin Sod/Tazobactam (Sod 3.375 gm/ Sodium Chloride) 50 mls @ 100 mls/hr IVPB ONCE STA Stop: 06/21/25 05:05 Last Admin: 06/21/25 04:48 Dose: 100 mls/hr Documented By: JENNIFER Morphine Sulfate (Morphine Sulfate (*Crx) 4 Mg/Ml Inj) 4 mg IV PUSH ONCE STA Stop: 06/21/25 03:05 Last Admin: 06/21/25 03:15 Dose: 4 mg Documented By: JENNIFER Ondansetron HCl (Ondansetron Inj 4 Mg/2 Ml Vial) 4 mg IV PUSH ONCE STA Stop: 06/21/25 03:05 Last Admin: 06/21/25 03:15 Dose: 4 mg Documented By: JENNIFER Interventions/Assessments IV / Saline Lock, Insert Start: 06/21/25 01:03 Freq: STAT Status: Active Protocol: Document 06/21/25 01:17 JENNIFER (Rec: 06/21/25 01:17 JENNIFER [id number]) IV Assessment Peripheral Access Left Antecubital IV Catheter Access Initiated IV Insertion Date 06/21/25 IV Insertion Time 01:17 Catheter Gauge 20 Ultrasound Used for No Placement IV Site Assessment WNL IV Care and WNL Maintenance PA: Gastrointestinal Assessment Start: 06/21/25 01:10 Freq: Status: Active Protocol: Document 06/21/25 01:10 JENNIFER (Rec: 06/21/25 01:12 HNK [id number]) GI Assessment Gastrointestinal Nausea,Pain Symptoms Description Distended,Tender Flatus Present Pattern Normal Nausea/Vomiting Assessment Nausea Frequency Intermittent Emesis Frequency None Last Vital Signs Temperature 98.1 F 06/21/25 01:10 Pulse Rate 90 06/21/25 05:02 Respiratory Rate 16 06/21/25 05:02 Pulse Oximetry 98 06/21/25 05:02 Blood Pressure 125/64 06/21/25 05:02 Blood Pressure Mean 84 06/21/25 05:02 Oxygen Delivery Room Air 06/21/25 01:10 Weight 76.6 kg 06/21/25 01:10 Last Result - Abnormals Only WBC 20.1 K/mm3 (4.5-10.0) H 06/21/25 01:18 RBC 4.09 M/mm3 (4.2-5.4) L 06/21/25 01:18 RDW 15.0 % (11.5-14.5) H 06/21/25 01:18 Immature Gran % (Auto) 0.7 % (0-0.5) H 06/21/25 01:18 Neut % (Auto) 82.6 % (45.5-73.1) H 06/21/25 01:18 Lymph % (Auto) 8.5 % (18.3-44.2) L 06/21/25 01:18 [place] # (Auto) 1.6 K/mm3 (0.1-0.6) H 06/21/25 01:18 Abs Immat Gran (auto) 0.14 K/mm3 (0.00-0.031) H 06/21/25 01:18 Absolute Neuts (auto) 16.6 K/mm3 (1.3-6.7) H 06/21/25 01:18 Potassium 3.3 mmol/L (3.4-5.0) L 06/21/25 01:18 Carbon Dioxide 20 mmol/L (22-30) L 06/21/25 01:18 Glucose 141 mg/dL (65-110) H 06/21/25 01:18 Urine Appearance Cloudy (Clear) H 06/21/25 01:18 Urine Protein 1+ mg/dL (Negative) H 06/21/25 01:18 Urine Glucose (UA) 3+ mg/dL (Negative) H 06/21/25 01:18 Urine Ketones 1+ mg/dL (Negative) H 06/21/25 01:18 Ur Blood (Man) 3+ (Negative) H 06/21/25 01:18 Leukocyte Esterase Rfl 2+ AMELIA/UL (Negative) H 06/21/25 01:18 Urine RBC 21-50 /hpf (0-2) H 06/21/25 01:18 Urine WBC >100 /hpf (0-3) H 06/21/25 01:18 Most Recent Suicide Severity Rating Suicide Severity Rating NO RISK INDICATED 06/21/25 01:10
--- NOTE | 2025-06-21 06:01 | ADMGEN ---
This patient, Bri Root, was admitted to [facility] Room 330-01. Patient/family oriented to hospital policies and general routines including ID bracelet, bed and alarms, visiting hours, pain management, procedures, bathroom and other care routines, personal items, smoking policy, room service/diet, and visiting hours. Information on how to activate the Rapid Response Team has been discussed. Patient/Family are encouraged to report perceived risks to care and to ask questions if they do not understand what they are told or what they should do.
--- NOTE | 2025-06-21 07:00 | PM.IMHP ---
H&P: HPI History of Present Illness Date/Time: 06/21/25 07:00 Chief Complaint: abdominal pain Narrative: 64 year old female with past medical history of diabetes mellitus, iron deficiency on iron infusions, breast cancer s/p mastectomy and chemotherapy in 2019, CAD s/p stents in 2014 on plavix, and hyperlipidemia presents to the hospital for abdominal pain. The abdominal pain started two days ago and initially was intermittent sharp stabbing pain. She associated these symptoms with gas and took Gas X without relief. The abdominal pain then became constant with sharp/stabbing more localized to the lower abdomen, predominantly on the left. She had associated nausea but no vomiting. She then developed loose stools, denies any blood in her stool. She denies any associated fever, chills, night sweats. Discussed code status with patient, she wishes to remain full code at this time and discuss further with her daughter. ED workup: CBC with WBC 20.1, H/H 12.8/39.1, PLT 244. CMP with Na 138, K 3.3, BUN/Cr 12/0.93 with GFR 60. Glucose 141. Lactic WNL. LFTs WNL. Lipase 82. UA with cloudy appearance with 1+ protein, 3+ glucose, 1+ ketones, 3+ blood, negative nitrate, 2+ leukocytes, 21-50 RBC, > [address] abdomen/pelvis: Findings consistent with sigmoidal diverticulitis with possible microperforation but no abscess or gross pneumoperitoneum. 1.8 cm enhancing lesion in the upper pole the right kidney concerning for possible renal cell carcinoma. Correlation with MRI recommended.Chronic dilatation of the pancreatic duct which is slightly more prominent then on the 2020 exam. Consider MRCP for further evaluation. Review of Systems Review of Systems: All systems reviewed & are unremarkable except as noted in HPI and below [facility] Past Medical History Medical History Atrophic gastritis Abnormal computed tomography of cecum and terminal ileum Ankle fracture Breast cancer Diabetes Surgical History Surgical History (Updated 06/21/25 @ 14:42 by Bailey Gonsalez PA-C) H/O right mastectomy History of coronary artery stent placement Family History Family History Mother , Diet after complications of surgery for perforated viscus Acute myocardial infarction Sibling Asthma Father , Thought to have in his 50s unknown cause in his sleep No problems noted. Social History Social History (Updated 06/21/25 @ 14:43 by Bailey Gonsalez PA-C) Social History: Presently lives alone. No pets. Occupational exposure Years smoked: 50 Smoking status: Current every day smoker Tobacco type: cigarettes Additional smoking assessment comments: Has smoked for some 40 years presently at half pack a day Alcohol intake: current Drinks per week: 7 Alcohol use details: BEERS/WINE Substance use: current Substance use type: marijuana Other substance usage details: VAPE PEN OCC. FOR PAIN Lack of Transportation: No Lack of Food: Never True Current Housing: I Have Housing Concerned About Future Housing: No Difficulty Paying Gas/Electric Bills: No Difficulty Paying for Meds: No Currently Unemployed: No Education: Grade School Difficulty w/ Childcare or Family Care: No Living arrangements: with family Gender identity (if verbalized by the patient): Female Spiritual care concerns: No Meds Home Medications and Allergies Home Medications ?Medication ?Instructions ?Recorded ?Confirmed ?Type acetaminophen 650 mg 650 mg PO Q8H PRN Pain 02/15/20 06/21/25 History tablet,extended release (Tylenol Arthritis Pain) carvedilol 6.25 mg tablet 6.25 mg PO BID 02/15/20 06/21/25 History glimepiride 4 mg tablet 4 mg PO DAILY 02/15/20 06/21/25 History lisinopril 10 mg tablet 10 mg PO DAILY 02/15/20 06/21/25 History pantoprazole 20 mg tablet,delayed 20 mg PO DAILY 02/15/20 06/21/25 History release pioglitazone 30 mg tablet 30 mg PO DAILY 02/15/20 06/21/25 History rosuvastatin 40 mg tablet 40 mg PO DAILY 02/15/20 06/21/25 History aspirin 81 mg tablet 81 mg PO DAILY 03/01/22 06/21/25 History calcium 600 mg (as 1 tablet PO DAILY 03/01/22 06/21/25 History carbonate)-vitamin D3 10 mcg (400 unit) tablet (Calcium 600 + D(3)) clopidogrel 75 mg tablet 75 mg PO DAILY 03/01/22 06/21/25 History empagliflozin 25 mg tablet 25 mg PO DAILY 03/01/22 06/21/25 History (Jardiance) dulaglutide 3 mg/0.5 mL 3 mg subcut WEEKLY 06/21/25 06/21/25 History subcutaneous pen injector (Trulicity) ezetimibe 10 mg tablet 10 mg PO DAILY 06/21/25 06/21/25 History Allergies Allergy/AdvReac Type Severity Reaction Status Date / Time codeine Allergy Severe Hives Verified 06/21/25 06:08 Vital Signs Vital Signs - 24 hr 06/21/25 01:10 06/21/25 02:03 06/21/25 02:15 Temperature 98.1 F Pulse Rate 106 H 100 99 Respiratory Rate 16 16 18 Blood Pressure 147/86 H 138/68 125/62 Pulse Oximetry 100 99 100 Oxygen Delivery Room Air 06/21/25 02:30 06/21/25 02:45 06/21/25 03:17 Temperature Pulse Rate 100 96 94 Respiratory Rate 20 16 17 Blood Pressure 134/63 131/64 129/65 Pulse Oximetry 100 100 99 Oxygen Delivery 06/21/25 04:07 06/21/25 05:02 Temperature Pulse Rate 98 90 Respiratory Rate 14 16 Blood Pressure 144/53 H 125/64 Pulse Oximetry 100 98 Oxygen Delivery Exam Narrative: AF HR 66 RR 20 SPO2 91 BP 136/58 General: female in no acute respiratory distress who is nontoxic appearing, lying semi recumbent in bed. HEENT: Normocephalic. Atraumatic. Extraocular movement intact. Sclera clear and anicteric. No facial asymmetry. Neck: Neck was supple. No dominant adenopathy, thyromegaly or masses. Chest: Lungs are clear to auscultation bilaterally. No wheezes or crackles. CV: Heart was regular rate and rhythm. S1-S2. No murmurs, gallops, or rubs. Abd: Abdomen was soft. Diffuse abdominal pain, worse in the LLQ with guarding. Nondistended. Positive bowel sounds. Ext: No clubbing, cyanosis, or edema. DP pulses bilaterally. Neuro: Patient is alert and oriented x4. Strength is 5/5 in both upper and lower extremities. Speech is clear. Psych: Normal mood and affect. Patient is pleasant and cooperative. Skin: Warm and dry. No rashes noted. H&P: Results Labs Labs: Short CBC 06/21/25 Range/Units 01:18 WBC 20.1 H (4.5-10.0) K/mm3 Hgb 12.8 (12.0-15.0) g/dL Hct 39.1 (37.0-47.0) % Plt Count 244 (150-375) k/mm3 BMP 06/21/25 01:18 Sodium 138 Potassium 3.3 L Chloride 106 Carbon Dioxide 20 L BUN 12 Creatinine 0.93 Glucose 141 H Calcium 9.2 Liver Function 06/21/25 Range/Units 01:18 Total Bilirubin 0.7 (0.2-1.3) mg/dL AST 28 (14-36) U/L ALT 16 (6-35) U/L Alkaline Phosphatase 114 (38-126) U/L Albumin 4.4 (3.5-5.1) g/dL Urine 06/21/25 Range/Units 01:18 Urine Color Yellow (Yellow) Urine Appearance Cloudy H (Clear) Urine pH 5.5 (5.0-9.0) Ur Specific [place] 1.030 (1.001-1.035) Urine Protein 1+ H (Negative) mg/dL Urine Glucose (UA) 3+ H (Negative) mg/dL Assessment and Plan Assessment and plan (1) Diverticulitis: Code(s): K57.92 - Diverticulitis of intestine, part unspecified, without perforation or abscess without bleeding Status: Acute Assessment and Plan: CT abdomen/pelvis: Findings consistent with sigmoidal diverticulitis with possible microperforation but no abscess or gross pneumoperitoneum. - Antibiotics: Zosyn 3.375g q6hr started on 06/21 - Fluids: LR 100 ml/hr - Blood cultures pending - CT abdomen/pelvis: Findings consistent with sigmoidal diverticulitis with possible microperforation but no abscess or gross pneumoperitoneum. - Monitor vital signs, I&Os, track stool output, watch for bloody stools, neuro status and patient is a fall risk - Monitor serum electrolytes and CBC - Diet: NPO except ice chips, if patient continues to have nausea/vomiting consider NG tube placement - Surgery consulted No indication for emergent surgical intervention at this time, continue conservative treatment with IV antibiotics, bowel rest, and IV fluids. Backing off her diet to NPO excpet ice chips (2) Kidney lesion: Code(s): N28.9 - Disorder of kidney and ureter, unspecified Status: Acute Assessment and Plan: CT abdomen/pelvis: 1.8 cm enhancing lesion in the upper pole the right kidney concerning for possible renal cell carcinoma. Informed patient about results, she denies a history Renal function WNL, continue to monitor MRI recommended ordered (3) Dilated pancreatic duct: Code(s): K86.89 - Other specified diseases of pancreas Status: Acute Assessment and Plan: CT abdomen/pelvis: Chronic dilatation of the pancreatic duct which is slightly more prominent then on the 2020 exam. Lipase and LFTs WNL. MRCP for further evaluation. (4) Acute UTI: Code(s): N39.0 - Urinary tract infection, site not specified Status: Acute Assessment and Plan: - UA with cloudy appearance with 1+ protein, 3+ glucose, 1+ ketones, 3+ blood, negative nitrate, 2+ leukocytes, 21-50 RBC, > 100 WBC - UC obtained on 06/21: pending - previous micro reviewed - started on zosyn on 06/21 Denies any UTI like symptoms. (5) Diabetes: Code(s): E11.9 - Type 2 diabetes mellitus without complications Status: Acute Assessment and Plan: - hypoglycemia protocol - POC blood glucose q6h as patient NPO - home medication - jardiance 25 mg daily, trulicity 3 mg weekly, glimepiride 4 mg daily, pioglitazone 30 mg daily - correct regimen ordered - continue home regimen, low dose TIDWM and HS - A1C ordered (6) Coronary artery disease: Code(s): I25.10 - Atherosclerotic heart disease of [place] coronary artery without angina pectoris Status: Acute Assessment and Plan: s/p stents, most recent 2014 continue plavix, carvedilol, and lisinopril Quality VTE Prophylaxis VTE prophylaxis: mechanical ordered Hospitalist [facility] Advance Care Plan I have confirmed that the patient's Advanced Care Plan is present, code status is documented, or surrogate decision maker is listed in patient medical record.: Yes Medication Reconciliation I have utilized all available resources to obtain, update and review the patients current medications (includes all prescriptions, OTC, herbals, cannabis, and nutritional supplements).: Yes
[2025-06-21] MEDS: LACTATED RINGERS 1,000 ML 100 ML IV CONT (11:58)
[2025-06-21] MEDS: LACTATED RINGERS 1,000 ML 100 ML (11:58)
--- NOTE | 2025-06-21 12:22 | PM.CNGS ---
Assessment and Plan Assessment and plan (1) Diverticulitis: Code(s): K57.92 - Diverticulitis of intestine, part unspecified, without perforation or abscess without bleeding Status: Acute Assessment and Plan: The patient presents with 2 days of LLQ abdominal pain. CT scan reviewed and shows evidence of acute sigmoid diverticulitis with microperforation. No abscess. She is significantly tender on exam, mostly in the LLQ. No diffuse peritoneal signs. No indication for emergent surgical intervention at this time. We would recommend to continue conservative treatment with IV antibiotics, bowel rest, and IV fluids. I agree with backing off her diet to NPO excpet ice chips. She was started on IV Zosyn in the ER. Will plan to repeat labs tomorrow and will continue to monitor with serial abdominal exams. (2) Antiplatelet or antithrombotic long-term use: Code(s): Z79.02 - long term care phlebotomist (current) use of antithrombotics/antiplatelets Status: Acute Assessment and Plan: Agree with holding Plavix for now (3) Coronary artery disease: Code(s): I25.10 - Atherosclerotic heart disease of [place] coronary artery without angina pectoris Status: Acute Assessment and Plan: Remote history of cardiac stents and on Plavix. (4) Diabetes: Code(s): E11.9 - Type 2 diabetes mellitus without complications Status: Acute (5) Dilated pancreatic duct: Code(s): K86.89 - Other specified diseases of pancreas Status: Acute Assessment and Plan: Incidentally noted on CT. Similar on previous imaging in 2020. Hospitalist ordered MRCP. (6) Acute UTI: Code(s): N39.0 - Urinary tract infection, site not specified Status: Acute Assessment and Plan: Abnormal UA, urine culture pending. Currently on IV Zosyn. Management per Hospitalist. Plan I have discussed the patient's case, recommendations, and treatment plan with Dr. Mcclendon. History of Present Illness Consult details Consult date: 06/21/25 Reason for consult: other (Diverticulitis with microperforation) Requesting physician: Bailey Gonsalez PA-C Narrative: This is a 64-year-old woman with history of CAD s/p multiple stents in 2014 on clopidogrel, breast cancer treated with R mastectomy and chemotherapy in 2019, and type 2 diabetes, who we have been asked to see in surgical consultation for diverticulitis with microperforation. She reports waking up with lower abdominal pain 2 days ago. Her pain would come and go in waves. No specific aggravating factors. She thought it was gas pains and tried taking Gas-X without relief. She had associated nausea, but no vomiting. She also notes having loose stools over the past few days, but no blood in her stool. Her abdominal pain progressed and brought her into the ED today for evaluation. Labs [place] [id number] scan of the abdomen and pelvis showed findings of sigmoid diverticulitis with micro perforation. No abscess. Also noted is 1.8 cm enhancing lesion in the right kidney, and chronic dilation of the pancreatic duct which is slightly more prominent than the CT in 2020. She was admitted with pancreatitis in 2019 and evaluated by GI. She has been admitted to the hospitalist service. She was given a solid diet earlier this morning and did not tolerate this well. She ended up vomiting and had more abdominal pain. She has now been made NPO. No previous abdominal surgeries. Denies a history of diverticulitis. Her last colonoscopy was in 2019 with polypectomy and noted diverticulosis. Review of Systems Review of Systems: All systems reviewed & are unremarkable except as noted in HPI and below PMFSH Past Medical History Medical History Atrophic gastritis Abnormal computed tomography of cecum and terminal ileum Ankle fracture Breast cancer Diabetes Surgical History Surgical History History of coronary artery stent placement Family History Family History Mother , Diet after complications of surgery for perforated viscus Acute myocardial infarction Sibling Asthma Father , Thought to have in his 50s unknown cause in his sleep No problems noted. Social History Social History Social History: Presently lives alone. Occupational exposure Years smoked: 50 Smoking status: Current every day smoker Tobacco type: cigarettes Additional smoking assessment comments: Has smoked for some 40 years presently at half pack a day Alcohol intake: current Drinks per week: 7 Alcohol use details: BEERS/WINE Substance use: current Substance use type: marijuana Other substance usage details: VAPE PEN OCC. FOR PAIN Lack of Transportation: No Lack of Food: Never True Current Housing: I Have Housing Concerned About Future Housing: No Difficulty Paying Gas/Electric Bills: No Difficulty Paying for Meds: No Currently Unemployed: No Education: Grade School Difficulty w/ Childcare or Family Care: No Living arrangements: with family Gender identity (if verbalized by the patient): Female Spiritual care concerns: No Meds Home Medications and Allergies Home Medications ?Medication ?Instructions ?Recorded ?Confirmed ?Type acetaminophen 650 mg 650 mg PO Q8H PRN Pain 02/15/20 06/21/25 History tablet,extended release (Tylenol Arthritis Pain) carvedilol 6.25 mg tablet 6.25 mg PO BID 02/15/20 06/21/25 History glimepiride 4 mg tablet 4 mg PO DAILY 02/15/20 06/21/25 History lisinopril 10 mg tablet 10 mg PO DAILY 02/15/20 06/21/25 History pantoprazole 20 mg tablet,delayed 20 mg PO DAILY 02/15/20 06/21/25 History release pioglitazone 30 mg tablet 30 mg PO DAILY 02/15/20 06/21/25 History rosuvastatin 40 mg tablet 40 mg PO DAILY 02/15/20 06/21/25 History aspirin 81 mg tablet 81 mg PO DAILY 03/01/22 06/21/25 History calcium 600 mg (as 1 tablet PO DAILY 03/01/22 06/21/25 History carbonate)-vitamin D3 10 mcg (400 unit) tablet (Calcium 600 + D(3)) clopidogrel 75 mg tablet 75 mg PO DAILY 03/01/22 06/21/25 History empagliflozin 25 mg tablet 25 mg PO DAILY 03/01/22 06/21/25 History (Jardiance) dulaglutide 3 mg/0.5 mL 3 mg subcut WEEKLY 06/21/25 06/21/25 History subcutaneous pen injector (Trulicity) ezetimibe 10 mg tablet 10 mg PO DAILY 06/21/25 06/21/25 History Allergies Allergy/AdvReac Type Severity Reaction Status Date / Time codeine Allergy Severe Hives Verified 06/21/25 06:08 Vital Signs Vital Signs - 24 hr 06/21/25 01:10 06/21/25 02:03 06/21/25 02:15 Temperature 98.1 F Pulse Rate 106 H 100 99 Respiratory Rate 16 16 18 Blood Pressure 147/86 H 138/68 125/62 Pulse Oximetry 100 99 100 Oxygen Delivery Room Air 06/21/25 02:30 06/21/25 02:45 06/21/25 03:17 Temperature Pulse Rate 100 96 94 Respiratory Rate 20 16 17 Blood Pressure 134/63 131/64 129/65 Pulse Oximetry 100 100 99 Oxygen Delivery 06/21/25 04:07 06/21/25 05:02 06/21/25 06:17 Temperature 97.9 F Pulse Rate 98 90 67 Respiratory Rate 14 16 16 Blood Pressure 144/53 H 125/64 145/51 H Pulse Oximetry 100 98 100 Oxygen Delivery Exam Const: General: comfortable and no acute distress Nutritional Appearance: average body habitus Orientation/consciousness: patient oriented x3 HENMT: Head: normocephalic and atraumatic Ears: hearing grossly normal bilaterally Mouth: Yes moist mucous membranes Eyes: General: appearance normal, both eyes and all related structures Pupils: Equal, round and reactive pupils present Neck: Neck: normal visual inspection and full ROM Resp: Effort & Inspection: no respiratory distress Auscultation: clear to auscultation bilaterally Cardio: Rate: regular rate Rhythm: regular rhythm Peripheral pulses: Peripheral pulses 2+ throughout GI: Inspection: non-distended, no scars and no visible herniation GI Palp: Yes Soft to palpation, Yes Tenderness to palpation present (GI) (mild diffuse tenderness, more severe focal tenderness in LLQ), Yes Guarding due to palpation present (GI) (LLQ) and No Rebound tenderness present Percussion: Yes normal to percussion Auscultation: normal bowel sounds Rectal Exam: deferred Skin: General skin exam: normal color Neuro: General: moves all extremities and no focal motor deficits Speech: normal speech Motor exam (neuro): 5/5 motor strength present throughout Extrem: General: normal to inspection and no edema Psych: Mental Status: mental status grossly normal Attitude: cooperative Insight: Good insight present (Psych) Judgement: Good judgement present (Psych) Results Labs 06/21/25 01:18 06/21/25 01:18 Labs: Abnormal lab results 06/21/25 06/21/25 Range/Units 01:18 11:10 WBC 20.1 H (4.5-10.0) K/mm3 RBC 4.09 L (4.2-5.4) M/mm3 RDW 15.0 H (11.5-14.5) % Immature Gran % (Auto) 0.7 H (0-0.5) % Neut % (Auto) 82.6 H (45.5-73.1) % Lymph % (Auto) 8.5 L (18.3-44.2) % [place] # (Auto) 1.6 H (0.1-0.6) K/mm3 Abs Immat Gran (auto) 0.14 H (0.00-0.031) K/mm3 Absolute Neuts (auto) 16.6 H (1.3-6.7) K/mm3 Potassium 3.3 L (3.4-5.0) mmol/L Carbon Dioxide 20 L (22-30) mmol/L Glucose 141 H (65-110) mg/dL POC Capillary Glucose 116 H (65-105) mg/dl Urine Appearance Cloudy H (Clear) Urine Protein 1+ H (Negative) mg/dL Urine Glucose (UA) 3+ H (Negative) mg/dL Urine Ketones 1+ H (Negative) mg/dL Ur Blood (Man) 3+ H (Negative) Leukocyte Esterase Rfl 2+ H (Negative) AMELIA/UL Urine RBC 21-50 H (0-2) /hpf Urine WBC >100 H (0-3) /hpf Diabetes panel 06/21/25 Range/Units 01:18 Sodium 138 (137-145) mmol/L Potassium 3.3 L (3.4-5.0) mmol/L Chloride 106 (98-107) mmol/L Carbon Dioxide 20 L (22-30) mmol/L BUN 12 (7-17) mg/dL Creatinine 0.93 (0.7-1.0) mg/dL Glucose 141 H (65-110) mg/dL Calcium 9.2 (8.4-10.2) mg/dL AST 28 (14-36) U/L ALT 16 (6-35) U/L Alkaline Phosphatase 114 (38-126) U/L Total Protein 7.9 (6.3-8.2) g/dL Albumin 4.4 (3.5-5.1) g/dL Calcium panel 06/21/25 Range/Units 01:18 Calcium 9.2 (8.4-10.2) mg/dL Albumin 4.4 (3.5-5.1) g/dL Pituitary panel 06/21/25 Range/Units 01:18 Sodium 138 (137-145) mmol/L Potassium 3.3 L (3.4-5.0) mmol/L Chloride 106 (98-107) mmol/L Carbon Dioxide 20 L (22-30) mmol/L BUN 12 (7-17) mg/dL Creatinine 0.93 (0.7-1.0) mg/dL Glucose 141 H (65-110) mg/dL Calcium 9.2 (8.4-10.2) mg/dL Adrenal panel 06/21/25 Range/Units 01:18 Sodium 138 (137-145) mmol/L Potassium 3.3 L (3.4-5.0) mmol/L Chloride 106 (98-107) mmol/L Carbon Dioxide 20 L (22-30) mmol/L BUN 12 (7-17) mg/dL Creatinine 0.93 (0.7-1.0) mg/dL Glucose 141 H (65-110) mg/dL Calcium 9.2 (8.4-10.2) mg/dL Total Bilirubin 0.7 (0.2-1.3) mg/dL AST 28 (14-36) U/L ALT 16 (6-35) U/L Alkaline Phosphatase 114 (38-126) U/L Total Protein 7.9 (6.3-8.2) g/dL Albumin 4.4 (3.5-5.1) g/dL All other labs normal. Imaging Additional studies: ITS Impressions Abdomen/Pelvis CT 06/21/25 08:12 IMPRESSION: 1. Findings consistent with sigmoidal diverticulitis with possible microperforation but no abscess or gross pneumoperitoneum. 2. 1.8 cm enhancing lesion in the upper pole the right kidney concerning for possible renal cell carcinoma. Correlation with MRI recommended. 3. Chronic dilatation of the pancreatic duct which is slightly more prominent then on the 2020 exam. Consider MRCP for further evaluation. NOTE: Preliminary radiologist report provided by [facility] radiologist/physician.
[2025-06-22] MEDS: LACTATED RINGERS 1,000 ML 100 ML IV CONT ×3 (01:43→22:43)
[2025-06-22] MEDS: PIPERACILLIN/TAZOBACTAM SOD 3.375 GM in SODIUM CHLORIDE 0.9% IV 50 ML 100 ML IVPB ×4 (04:37→22:42)
[2025-06-22 06:00] VITALS: BP 129/56; PULSE 74; RESP 16; TEMP 37.3; O2SAT 98
[2025-06-22 08:18] LABS: Hematocrit 32.7 % (37.0-47.0); Hemoglobin 10.8 g/dL (12.0-15.0); Mean Corpuscular HGB Conc 33.0 g/dl (32-36); Mean Corpuscular Hemoglobin 31.6 pg (26-34); Mean Corpuscular Volume 95.6 fl (80-100); Platelet Count Result 237 k/mm3 (150-375); Red Blood Count 3.42 M/mm3 (4.2-5.4); White Blood Count 15.1 K/mm3 (4.5-10.0)
--- NOTE | 2025-06-22 08:25 | PM.IMPN ---
Progress Note: A&P Assessment and Plan (1) Diverticulitis: Code(s): K57.92 - Diverticulitis of intestine, part unspecified, without perforation or abscess without bleeding Status: Acute Assessment and Plan: CT abdomen/pelvis: Findings consistent with sigmoidal diverticulitis with possible microperforation but no abscess or gross pneumoperitoneum. - Antibiotics: Zosyn 3.375g q6hr started on 06/21 - Fluids: LR 100 ml/hr - Blood cultures pending - CT abdomen/pelvis: Findings consistent with sigmoidal diverticulitis with possible microperforation but no abscess or gross pneumoperitoneum. - Monitor vital signs, I&Os, track stool output, watch for bloody stools, neuro status and patient is a fall risk - Monitor serum electrolytes and CBC - Diet: NPO except ice chips, if patient continues to have nausea/vomiting consider NG tube placement - Surgery consulted No indication for emergent surgical intervention at this time, continue conservative treatment with IV antibiotics, bowel rest, and IV fluids. Backing off her diet to NPO excpet ice chips (2) Kidney lesion: Code(s): N28.9 - Disorder of kidney and ureter, unspecified Status: Acute Assessment and Plan: CT abdomen/pelvis: 1.8 cm enhancing lesion in the upper pole the right kidney concerning for possible renal cell carcinoma. Informed patient about results, she denies a history Renal function WNL, continue to monitor MRI recommended ordered (3) Dilated pancreatic duct: Code(s): K86.89 - Other specified diseases of pancreas Status: Acute Assessment and Plan: CT abdomen/pelvis: Chronic dilatation of the pancreatic duct which is slightly more prominent then on the 2020 exam. Lipase and LFTs WNL. MRCP for further evaluation. (4) Acute UTI: Code(s): N39.0 - Urinary tract infection, site not specified Status: Acute Assessment and Plan: - UA with cloudy appearance with 1+ protein, 3+ glucose, 1+ ketones, 3+ blood, negative nitrate, 2+ leukocytes, 21-50 RBC, > 100 WBC - UC obtained on 06/21: pending - previous micro reviewed - started on zosyn on 06/21 Denies any UTI like symptoms. (5) Diabetes: Code(s): E11.9 - Type 2 diabetes mellitus without complications Status: Acute Assessment and Plan: - hypoglycemia protocol - POC blood glucose q6h as patient NPO - home medication - jardiance 25 mg daily, trulicity 3 mg weekly, glimepiride 4 mg daily, pioglitazone 30 mg daily - correct regimen ordered - continue home regimen, low dose TIDWM and HS - A1C ordered (6) Coronary artery disease: Code(s): I25.10 - Atherosclerotic heart disease of [place] coronary artery without angina pectoris Status: Acute Assessment and Plan: s/p stents, most recent 2014 continue plavix, carvedilol, and lisinopril Plan GI consult for showed diffuse pancreatic duct dilatation Time Spent With Patient Time with patient: 25 - 35 minutes Subjective Date/time seen: 06/22/25 08:25 Interval history: 64 year old female with past medical history of diabetes mellitus, iron deficiency on iron infusions, breast cancer s/p mastectomy and chemotherapy in 2019, CAD s/p stents in 2014 on plavix, and hyperlipidemia presents to the hospital for abdominal pain. The abdominal pain started two days ago and initially was intermittent sharp stabbing pain. She associated these symptoms with gas and took Gas X without relief. The abdominal pain then became constant with sharp/stabbing more localized to the lower abdomen, predominantly on the left. She had associated nausea but no vomiting. She then developed loose stools, denies any blood in her stool. She denies any associated fever, chills, night sweats. Discussed code status with patient, she wishes to remain full code at this time and discuss further with her daughter. ED workup: CBC with WBC 20.1, H/H 12.8/39.1, PLT 244. CMP with Na 138, K 3.3, BUN/Cr 12/0.93 with GFR 60. Glucose 141. Lactic WNL. LFTs WNL. Lipase 82. UA with cloudy appearance with 1+ protein, 3+ glucose, 1+ ketones, 3+ blood, negative nitrate, 2+ leukocytes, 21-50 RBC, > [address] abdomen/pelvis: Findings consistent with sigmoidal diverticulitis with possible microperforation but no abscess or gross pneumoperitoneum. 1.8 cm enhancing lesion in the upper pole the right kidney concerning for possible renal cell carcinoma. Correlation with MRI recommended.Chronic dilatation of the pancreatic duct which is slightly more prominent then on the 2020 exam. Consider MRCP for further evaluation. MRCP done, surgery consulted. Abd pain is a lot better. no n/v. Review of Systems Review of Systems: All systems reviewed & are unremarkable except as noted in HPI and below Exam Narrative: AF HR 66 RR 20 SPO2 91 BP 136/58 General: female in no acute respiratory distress who is nontoxic appearing, lying semi recumbent in bed. HEENT: Normocephalic. Atraumatic. Extraocular movement intact. Sclera clear and anicteric. No facial asymmetry. Neck: Neck was supple. No dominant adenopathy, thyromegaly or masses. Chest: Lungs are clear to auscultation bilaterally. No wheezes or crackles. CV: Heart was regular rate and rhythm. S1-S2. No murmurs, gallops, or rubs. Abd: Abdomen was soft. Diffuse abdominal pain, worse in the LLQ with guarding. Nondistended. Positive bowel sounds. Ext: No clubbing, cyanosis, or edema. DP pulses bilaterally. Neuro: Patient is alert and oriented x4. Strength is 5/5 in both upper and lower extremities. Speech is clear. Psych: Normal mood and affect. Patient is pleasant and cooperative. Skin: Warm and dry. No rashes noted. Objective Data Vital Signs Vital Signs: Vital Signs - 24 hr 06/21/25 13:58 06/21/25 18:19 06/21/25 20:00 Temperature 97.5 F L Pulse Rate 66 78 94 Respiratory Rate 20 16 Blood Pressure 136/58 L Pulse Oximetry 91 98 Oxygen Delivery Room Air 06/21/25 20:51 06/21/25 22:09 06/22/25 06:00 Temperature 98.4 F 99.2 F Pulse Rate 94 74 Respiratory Rate 16 16 Blood Pressure 138/68 129/56 L Pulse Oximetry 98 98 98 Oxygen Delivery Room Air Intake/Output Intake/Output: Intake & Output 06/19/25 06/20/25 06/21/25 06/22/25 23:59 23:59 23:59 23:59 Intake Total 2380 50 Output Total 800 Balance 1580 50 Meds/Results Medications: Active Medications Generic Name Dose Route Start Last Admin Trade Name Freq PRN Reason Stop Dose Admin Acetaminophen 650 mg 06/21/25 04:42 Acetaminophen 325 Mg Tablet PO Q4H PRN Mild Pain (1-3) or Fever Aspirin 81 mg 06/22/25 09:00 Aspirin 81 Mg Enteric Tablet PO QAM [facility] Carvedilol 6.25 mg 06/21/25 17:00 06/21/25 18:19 Carvedilol 6.25 Mg Tablet PO Not Given BID [facility] Clopidogrel Bisulfate 75 mg 06/22/25 09:00 Clopidogrel Bisulfate 75 Mg Tablet PO DAILY [facility] Dextrose 12.5 gm 06/21/25 14:52 Dextrose 50% 25 Gm/50 Ml Syringe IV PUSH PRN PRN Hypoglycemia Protocol Ezetimibe 10 mg 06/22/25 09:00 Ezetimibe 10 Mg Tablet PO DAILY [facility] Empagliflozin 25 mg 06/22/25 09:00 Empagliflozin 25 Mg Tablet PO DAILY [facility] Glimepiride 4 mg 06/22/25 08:00 Glimepiride 2 Mg Tablet PO DAILY@0800 [facility] Glucagon 1 mg 06/21/25 14:52 Glucagon For Inj 1 Mg Vial IM PRN PRN Hypoglycemia Protocol Glucose 15 gm 06/21/25 14:52 Glucose Oral Gel 15 Gm Of Glucse In 37.5 Gm Tube PO PRN PRN Hypoglycemia Protocol Piperacillin Sod/Tazobactam 50 mls @ 100 mls/hr 06/21/25 11:00 06/22/25 05:10 Sod 3.375 gm/ Sodium Chloride IVPB Infused Q6H [facility] Infusion Lactated Ringer's 1,000 mls @ 100 mls/hr 06/21/25 14:50 06/22/25 01:43 Lr - Lactated Ringers Iv IV CONT 100 mls/hr .Q10H [facility] Administration Dextrose 1,000 mls @ 100 mls/hr 06/21/25 14:52 Dextrose 5% 1,000 Ml IVPB PRN PRN Hypoglycemia Protocol Insulin Aspart 2 - 5 units 06/21/25 17:00 06/21/25 18:19 Insulin Aspart (*Bkc) 100 Units/Ml SUB-Q Not Given TIDWM [facility] Protocol Lisinopril 10 mg 06/22/25 09:00 Lisinopril 10 Mg Tablet PO DAILY [facility] Morphine Sulfate 4 mg 06/21/25 04:42 06/21/25 19:32 Morphine Sulfate (*Crx) 4 Mg/Ml Inj IV PUSH 4 mg Q2H PRN Administration Pain Rated 7-10 Ondansetron HCl 4 mg 06/21/25 04:42 06/21/25 19:28 Ondansetron Inj 4 Mg/2 Ml Vial IV PUSH 4 mg Q4H PRN Administration Nausea Pioglitazone HCl 30 mg 06/22/25 09:00 Pioglitazone Hcl 30 Mg Tablet PO DAILY [facility] Rosuvastatin Calcium 40 mg 06/22/25 09:00 Rosuvastatin 20 Mg Tablet PO DAILY [facility] Radiology Results: ITS Impressions Abdomen/Pelvis CT 06/21/25 08:12 IMPRESSION: 1. Findings consistent with sigmoidal diverticulitis with possible microperforation but no abscess or gross pneumoperitoneum. 2. 1.8 cm enhancing lesion in the upper pole the right kidney concerning for possible renal cell carcinoma. Correlation with MRI recommended. 3. Chronic dilatation of the pancreatic duct which is slightly more prominent then on the 2020 exam. Consider MRCP for further evaluation. NOTE: Preliminary radiologist report provided by [facility] radiologist/physician. MRCP 06/21/25 20:19 IMPRESSION: 1. No evidence of gallstones. Borderline dilated extrahepatic bile ducts. 2. Diffusely dilated pancreatic duct to the confluence with the common bile duct with stricture of the pancreatic duct at this level. No evidence of pancreatic calculi are noted. Endoscopy/biopsy is suggested to ensure benign process. Stent placement can be done at the same sitting. 3. No focal lesions of the liver and spleen. Mild hepatomegaly. Labs Labs: Laboratory Results - last 24 hr 06/21/25 06/21/25 06/21/25 11:10 17:51 23:50 WBC RBC Hgb Hct MCV MCH MCHC RDW Plt Count MPV POC Capillary Glucose 116 H 92 86 06/22/25 06/22/25 04:21 07:31 WBC 15.1 H RBC 3.42 L Hgb 10.8 L Hct 32.7 L MCV 95.6 MCH 31.6 MCHC 33.0 RDW 15.0 H Plt Count 237 MPV 9.4 POC Capillary Glucose 75 Quality VTE Prophylaxis VTE prophylaxis: mechanical ordered
[2025-06-22 08:39] LABS: Alanine Aminotransferase 9 U/L (6-35); Albumin Level 3.4 g/dL (3.5-5.1); Alkaline Phosphatase 106 U/L (38-126); Anion Gap 10 mmol/L (4-12); Aspartate Amino Transferase 21 U/L (14-36); Bilirubin,Total 0.6 mg/dL (0.2-1.3); Blood Urea Nitrogen 14 mg/dL (7-17); Calcium 8.5 mg/dL (8.4-10.2); Carbon Dioxide 22 mmol/L (22-30); Chloride 107 mmol/L (98-107); Estimated CRCL calculation 57 ml/min; Estimated Glomerular Filt Rate > 60; Glucose 63 mg/dL (65-110); Potassium 3.2 mmol/L (3.4-5.0); Sodium 139 mmol/L (137-145); Total Protein 6.4 g/dL (6.3-8.2)
[2025-06-22 08:51] LABS: Hemoglobin A1C 5.2 % (<5.7)
[2025-06-22] MEDS: DEXTROSE 50% 25 GM/50 ML SYRINGE IV PUSH (09:28)
[2025-06-22] MEDS: ASPIRIN 81 MG ENTERIC TABLET PO (09:31)
[2025-06-22] MEDS: CLOPIDOGREL BISULFATE 75 MG TABLET PO (09:31)
[2025-06-22] MEDS: ROSUVASTATIN 20 MG TABLET 40 MG PO (09:32)
[2025-06-22 09:33] VITALS: PULSE 78
[2025-06-22] MEDS: EZETIMIBE 10 MG TABLET PO (09:33)
[2025-06-22] MEDS: POTASSIUM CHLORIDE INJ 40 MEQ in SODIUM CHLORIDE 0.9% IV 500 ML 130 MEQ IVPB (10:29)
[2025-06-22 13:54] VITALS: BP 123/53; PULSE 75; RESP 18; TEMP 36.6; O2SAT 100
--- NOTE | 2025-06-22 15:00 | PM.PNGS ---
Progress Note: A&P Assessment and Plan (1) Diverticulitis: Code(s): K57.92 - Diverticulitis of intestine, part unspecified, without perforation or abscess without bleeding Status: Acute Assessment and Plan: Clinically improving with IV antibiotics. WBC count trending down. Abd pain and exam improved. 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 MRCP showed diffuse pancreatic duct dilatation to the confluence of the CBD with stricture of the pancreatic duct at this level with no stones. Lipase was normal on admission. She does have a history of pancreatitis. Does not appear to be causing any acute issues, but will eventually need GI evaluation for possible ERCP/biopsy. (6) Acute UTI: Code(s): N39.0 - Urinary tract infection, site not specified Status: Acute Plan I have discussed the patient's case, recommendations, and treatment plan with Dr. Mcclendon. Subjective Subjective Date/Time Seen: 06/22/25 10:00 Patient reports: no new complaints, feels better, pain is less, flatus, no bowel movement (last BM yesterday) and afebrile Interval history: Patient is feeling much better. Reports her abdominal pain has improved significantly. No nausea or vomiting. She is very thirsty. No other complaints at this time. Exam Const: General: comfortable and no acute distress Orientation/consciousness: patient oriented x3 GI: Inspection: non-distended GI Palp: Yes Soft to palpation, Yes Tenderness to palpation present (GI) (LLQ), No Guarding due to palpation present (GI) and No Rebound tenderness present Percussion: Yes normal to percussion Auscultation: normal bowel sounds Objective Data Vital Signs Vital Signs: Vital Signs - 24 hr 06/21/25 18:19 06/21/25 20:00 06/21/25 20:51 Temperature 98.4 F Pulse Rate 78 94 94 Respiratory Rate 16 16 Blood Pressure 138/68 Pulse Oximetry 98 98 Oxygen Delivery Room Air 06/21/25 22:09 06/22/25 06:00 06/22/25 09:33 Temperature 99.2 F Pulse Rate 74 78 Respiratory Rate 16 Blood Pressure 129/56 L Pulse Oximetry 98 98 Oxygen Delivery Room Air 06/22/25 13:54 Temperature 97.9 F Pulse Rate 75 Respiratory Rate 18 Blood Pressure 123/53 L Pulse Oximetry 100 Oxygen Delivery Intake/Output Intake/Output: Intake & Output 06/19/25 06/20/25 06/21/25 06/22/25 23:59 23:59 23:59 23:59 Intake Total 2380 286 Output Total 800 Balance 1580 286 Meds/Results Medications: Active Medications Generic Name Dose Route Start Last Admin Trade Name Freq PRN Reason Stop Dose Admin Acetaminophen 650 mg 06/21/25 04:42 Acetaminophen 325 Mg Tablet PO Q4H PRN Mild Pain (1-3) or Fever Aspirin 81 mg 06/22/25 09:00 06/22/25 09:31 Aspirin 81 Mg Enteric Tablet PO 81 mg QAM [facility] Administration Carvedilol 6.25 mg 06/21/25 17:00 06/22/25 09:33 Carvedilol 6.25 Mg Tablet PO 6.25 mg BID [facility] Administration Clopidogrel Bisulfate 75 mg 06/22/25 09:00 06/22/25 09:31 Clopidogrel Bisulfate 75 Mg Tablet PO 75 mg DAILY [facility] Administration Dextrose 12.5 gm 06/21/25 14:52 06/22/25 09:28 Dextrose 50% 25 Gm/50 Ml Syringe IV PUSH 12.5 gm PRN PRN Administration Hypoglycemia Protocol Ezetimibe 10 mg 06/22/25 09:00 06/22/25 09:33 Ezetimibe 10 Mg Tablet PO 10 mg DAILY [facility] Administration Empagliflozin 25 mg 06/22/25 09:00 06/22/25 09:36 Empagliflozin 25 Mg Tablet PO Not Given DAILY [facility] Glucagon 1 mg 06/21/25 14:52 Glucagon For Inj 1 Mg Vial IM PRN PRN Hypoglycemia Protocol Glucose 15 gm 06/21/25 14:52 Glucose Oral Gel 15 Gm Of Glucse In 37.5 Gm Tube PO PRN PRN Hypoglycemia Protocol Piperacillin Sod/Tazobactam 50 mls @ 100 mls/hr 06/21/25 11:00 06/22/25 10:18 Sod 3.375 gm/ Sodium Chloride IVPB 100 mls/hr Q6H [facility] Administration Lactated Ringer's 1,000 mls @ 100 mls/hr 06/21/25 14:50 06/22/25 01:43 Lr - Lactated Ringers Iv IV CONT 100 mls/hr .Q10H [facility] Administration Dextrose 1,000 mls @ 100 mls/hr 06/21/25 14:52 Dextrose 5% 1,000 Ml IVPB PRN PRN Hypoglycemia Protocol Insulin Aspart 2 - 5 units 06/21/25 17:00 06/22/25 14:27 Insulin Aspart (*Bkc) 100 Units/Ml SUB-Q Not Given TIDWM [facility] Protocol Lisinopril 10 mg 06/22/25 09:00 06/22/25 09:33 Lisinopril 10 Mg Tablet PO 10 mg DAILY [facility] Administration Morphine Sulfate 4 mg 06/21/25 04:42 06/21/25 19:32 Morphine Sulfate (*Crx) 4 Mg/Ml Inj IV PUSH 4 mg Q2H PRN Administration Pain Rated 7-10 Ondansetron HCl 4 mg 06/21/25 04:42 06/21/25 19:28 Ondansetron Inj 4 Mg/2 Ml Vial IV PUSH 4 mg Q4H PRN Administration Nausea Rosuvastatin Calcium 40 mg 06/22/25 09:00 06/22/25 09:32 Rosuvastatin 20 Mg Tablet PO 40 mg DAILY [facility] Administration Radiology Results: ITS Impressions Abdomen/Pelvis CT 06/21/25 08:12 IMPRESSION: 1. Findings consistent with sigmoidal diverticulitis with possible microperforation but no abscess or gross pneumoperitoneum. 2. 1.8 cm enhancing lesion in the upper pole the right kidney concerning for possible renal cell carcinoma. Correlation with MRI recommended. 3. Chronic dilatation of the pancreatic duct which is slightly more prominent then on the 2020 exam. Consider MRCP for further evaluation. NOTE: Preliminary radiologist report provided by [facility] radiologist/physician. MRCP 06/21/25 20:19 IMPRESSION: 1. No evidence of gallstones. Borderline dilated extrahepatic bile ducts. 2. Diffusely dilated pancreatic duct to the confluence with the common bile duct with stricture of the pancreatic duct at this level. No evidence of pancreatic calculi are noted. Endoscopy/biopsy is suggested to ensure benign process. Stent placement can be done at the same sitting. 3. No focal lesions of the liver and spleen. Mild hepatomegaly. Labs Labs: Laboratory Results - last 24 hr 06/21/25 06/21/25 06/22/25 17:51 23:50 04:21 WBC RBC Hgb Hct MCV MCH MCHC RDW Plt Count MPV Sodium Potassium Chloride Carbon Dioxide Anion Gap BUN Creatinine Estim Creat Clear Calc Estimated GFR Glucose POC Capillary Glucose 92 86 75 Hemoglobin A1c Calcium Total Bilirubin AST ALT Alkaline Phosphatase Total Protein Albumin 06/22/25 06/22/25 07:31 10:56 WBC 15.1 H RBC 3.42 L Hgb 10.8 L Hct 32.7 L MCV 95.6 MCH 31.6 MCHC 33.0 RDW 15.0 H Plt Count 237 MPV 9.4 Sodium 139 Potassium 3.2 L Chloride 107 Carbon Dioxide 22 Anion Gap 10 BUN 14 Creatinine 0.87 Estim Creat Clear Calc 57 Estimated GFR > 60 Glucose 63 L POC Capillary Glucose 124 H Hemoglobin A1c 5.2 Calcium 8.5 Total Bilirubin 0.6 AST 21 ALT 9 Alkaline Phosphatase 106 Total Protein 6.4 Albumin 3.4 L
[2025-06-22 16:46] VITALS: PULSE 78
[2025-06-22 20:11] VITALS: BP 116/47; PULSE 72; RESP 18; TEMP 36.6; O2SAT 99
[2025-06-23] MEDS: PIPERACILLIN/TAZOBACTAM SOD 3.375 GM in SODIUM CHLORIDE 0.9% IV 50 ML 100 ML IVPB ×3 (04:19→16:13)
[2025-06-23 06:00] VITALS: BP 133/63; PULSE 65; RESP 18; TEMP 36.4; O2SAT 100
[2025-06-23] MEDS: LACTATED RINGERS 1,000 ML 100 ML IV CONT (07:07)
[2025-06-23 07:20] LABS: Hematocrit 32.6 % (37.0-47.0); Hemoglobin 10.7 g/dL (12.0-15.0); Mean Corpuscular HGB Conc 32.8 g/dl (32-36); Mean Corpuscular Hemoglobin 31.7 pg (26-34); Mean Corpuscular Volume 96.4 fl (80-100); Platelet Count Result 252 k/mm3 (150-375); Red Blood Count 3.38 M/mm3 (4.2-5.4); White Blood Count 9.5 K/mm3 (4.5-10.0)
[2025-06-23 07:33] LABS: Alanine Aminotransferase 12 U/L (6-35); Albumin Level 3.5 g/dL (3.5-5.1); Alkaline Phosphatase 92 U/L (38-126); Anion Gap 7 mmol/L (4-12); Aspartate Amino Transferase 24 U/L (14-36); Bilirubin,Total 0.4 mg/dL (0.2-1.3); Blood Urea Nitrogen 6 mg/dL (7-17); Calcium 8.4 mg/dL (8.4-10.2); Carbon Dioxide 24 mmol/L (22-30); Chloride 109 mmol/L (98-107); Estimated CRCL calculation 62 ml/min; Estimated Glomerular Filt Rate > 60; Glucose 115 mg/dL (65-110); Magnesium 2.0 mg/dL (1.6-2.3); Potassium 3.4 mmol/L (3.4-5.0); Sodium 140 mmol/L (137-145); Total Protein 6.6 g/dL (6.3-8.2)
[2025-06-23 07:39] VITALS: RESP 18; O2SAT 100
[2025-06-23 09:07] VITALS: PULSE 68
[2025-06-23] MEDS: EMPAGLIFLOZIN 25 MG TABLET PO (09:07)
[2025-06-23] MEDS: ROSUVASTATIN 20 MG TABLET 40 MG PO (09:07)
[2025-06-23] MEDS: ASPIRIN 81 MG ENTERIC TABLET PO (09:07)
[2025-06-23] MEDS: CLOPIDOGREL BISULFATE 75 MG TABLET PO (09:07)
[2025-06-23] MEDS: EZETIMIBE 10 MG TABLET PO (09:07)
--- NOTE | 2025-06-23 10:02 | P.PNGS_ITS ---
Progress Note: A&P Assessment and Plan (1) Diverticulitis: Code(s): K57.92 - Diverticulitis of intestine, part unspecified, without perforation or abscess without bleeding Status: Acute Assessment and Plan: * Continues to clinically improve * Advance to low fiber diet * She is surgically stable for discharge later today if tolerating the low fiber diet. She can transition to oral antibiotics and follow-up with Dr. Mcclendon in 2 weeks. 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 Mcclendon. Subjective Subjective Date/Time Seen: 06/23/25 10:02 Patient reports: no new complaints, feels better, pain is less, tolerating liquids well, flatus, bowel movement (yesterday) and afebrile Interval history: Patient is feeling like she continues to improve. Her abd is better again today. She had some nausea yesterday, but this resolved. No vomiting. She had a good BM yesterday that was soft/loose. She is not having any abd this am. She reports significant improvement in her abd pain with passing flatus and her BM yesterday. Exam Const: General: comfortable and no acute distress GI: Inspection: non-distended GI Palp: Yes Soft to palpation, No Tenderness to palpation present (GI), No Guarding due to palpation present (GI) and No Rebound tenderness present Auscultation: normal bowel sounds Objective Data Vital Signs Vital Signs: Vital Signs - 24 hr 06/22/25 13:54 06/22/25 16:46 06/22/25 20:11 Temperature 97.9 F 97.9 F Pulse Rate 75 78 72 Respiratory Rate 18 18 Blood Pressure 123/53 L 116/47 L Pulse Oximetry 100 99 Oxygen Delivery 06/23/25 06:00 06/23/25 07:39 06/23/25 09:07 Temperature 97.6 F Pulse Rate 65 68 Respiratory Rate 18 18 Blood Pressure 133/63 Pulse Oximetry 100 100 Oxygen Delivery Room Air Intake/Output Intake/Output: Intake & Output 06/20/25 06/21/25 06/22/25 06/23/25 23:59 23:59 23:59 23:59 Intake Total 2380 1677.7 1180 Output Total 800 Balance 1580 1677.7 1180 Meds/Results Medications: Active Medications Generic Name Dose Route Start Last Admin Trade Name Freq PRN Reason Stop Dose Admin Acetaminophen 650 mg 06/21/25 04:42 Acetaminophen 325 Mg Tablet PO Q4H PRN Mild Pain (1-3) or Fever Aspirin 81 mg 06/22/25 09:00 06/23/25 09:07 Aspirin 81 Mg Enteric Tablet PO 81 mg QAM [facility] Administration Carvedilol 6.25 mg 06/21/25 17:00 06/23/25 09:07 Carvedilol 6.25 Mg Tablet PO 6.25 mg BID [facility] Administration Clopidogrel Bisulfate 75 mg 06/22/25 09:00 06/23/25 09:07 Clopidogrel Bisulfate 75 Mg Tablet PO 75 mg DAILY [facility] Administration Dextrose 12.5 gm 06/21/25 14:52 06/22/25 09:28 Dextrose 50% 25 Gm/50 Ml Syringe IV PUSH 12.5 gm PRN PRN Administration Hypoglycemia Protocol Ezetimibe 10 mg 06/22/25 09:00 06/23/25 09:07 Ezetimibe 10 Mg Tablet PO 10 mg DAILY [facility] Administration Empagliflozin 25 mg 06/22/25 09:00 06/23/25 09:07 Empagliflozin 25 Mg Tablet PO 25 mg DAILY [facility] Administration Glucagon 1 mg 06/21/25 14:52 Glucagon For Inj 1 Mg Vial IM PRN PRN Hypoglycemia Protocol Glucose 15 gm 06/21/25 14:52 Glucose Oral Gel 15 Gm Of Glucse In 37.5 Gm Tube PO PRN PRN Hypoglycemia Protocol Piperacillin Sod/Tazobactam 50 mls @ 100 mls/hr 06/21/25 11:00 06/23/25 04:19 Sod 3.375 gm/ Sodium Chloride IVPB 100 mls/hr Q6H [facility] Administration Lactated Ringer's 1,000 mls @ 100 mls/hr 06/21/25 14:50 06/23/25 07:07 Lr - Lactated Ringers Iv IV CONT 100 mls/hr .Q10H [facility] Administration Dextrose 1,000 mls @ 100 mls/hr 06/21/25 14:52 Dextrose 5% 1,000 Ml IVPB PRN PRN Hypoglycemia Protocol Insulin Aspart 2 - 5 units 06/21/25 17:00 06/23/25 07:47 Insulin Aspart (*Bkc) 100 Units/Ml SUB-Q Not Given TIDWM [facility] Protocol Lisinopril 10 mg 06/22/25 09:00 06/23/25 09:08 Lisinopril 10 Mg Tablet PO 10 mg DAILY [facility] Administration Morphine Sulfate 4 mg 06/21/25 04:42 06/21/25 19:32 Morphine Sulfate (*Crx) 4 Mg/Ml Inj IV PUSH 4 mg Q2H PRN Administration Pain Rated 7-10 Ondansetron HCl 4 mg 06/21/25 04:42 06/21/25 19:28 Ondansetron Inj 4 Mg/2 Ml Vial IV PUSH 4 mg Q4H PRN Administration Nausea Rosuvastatin Calcium 40 mg 06/22/25 09:00 06/23/25 09:07 Rosuvastatin 20 Mg Tablet PO 40 mg DAILY [facility] Administration Radiology Results: ITS Impressions Abdomen/Pelvis CT 06/21/25 08:12 IMPRESSION: 1. Findings consistent with sigmoidal diverticulitis with possible microperforation but no abscess or gross pneumoperitoneum. 2. 1.8 cm enhancing lesion in the upper pole the right kidney concerning for possible renal cell carcinoma. Correlation with MRI recommended. 3. Chronic dilatation of the pancreatic duct which is slightly more prominent then on the 2020 exam. Consider MRCP for further evaluation. NOTE: Preliminary radiologist report provided by [facility] radiologist/physician. MRCP 06/21/25 20:19 IMPRESSION: 1. No evidence of gallstones. Borderline dilated extrahepatic bile ducts. 2. Diffusely dilated pancreatic duct to the confluence with the common bile duct with stricture of the pancreatic duct at this level. No evidence of pancreatic calculi are noted. Endoscopy/biopsy is suggested to ensure benign process. Stent placement can be done at the same sitting. 3. No focal lesions of the liver and spleen. Mild hepatomegaly. Labs Labs: Laboratory Results - last 24 hr 06/22/25 06/22/25 06/22/25 10:56 16:28 19:35 WBC RBC Hgb Hct MCV MCH MCHC RDW Plt Count MPV Sodium Potassium Chloride Carbon Dioxide Anion Gap BUN Creatinine Estim Creat Clear Calc Estimated GFR Glucose POC Capillary Glucose 124 H 121 H 163 H Calcium Magnesium Total Bilirubin AST ALT Alkaline Phosphatase Total Protein Albumin 06/23/25 06/23/25 06:57 07:40 WBC 9.5 RBC 3.38 L Hgb 10.7 L Hct 32.6 L MCV 96.4 MCH 31.7 MCHC 32.8 RDW 15.0 H Plt Count 252 MPV 9.3 Sodium 140 Potassium 3.4 Chloride 109 H Carbon Dioxide 24 Anion Gap 7 BUN 6 L D Creatinine 0.79 Estim Creat Clear Calc 62 Estimated GFR > 60 Glucose 115 H POC Capillary Glucose 126 H Calcium 8.4 Magnesium 2.0 Total Bilirubin 0.4 AST 24 ALT 12 Alkaline Phosphatase 92 Total Protein 6.6 Albumin 3.5
[2025-06-23 13:56] VITALS: BP 134/53; PULSE 68; RESP 22; TEMP 36; O2SAT 100
--- NOTE | 2025-06-23 15:15 | P.DS_ITS ---
DS: Admitting Diagnosis Discharge Date 06/23 Admitting Diagnosis abd pain DS: Discharge Diagnosis Discharge Diagnosis (1) Diverticulitis: Code(s): K57.92 - Diverticulitis of intestine, part unspecified, without perforation or abscess without bleeding Status: Acute (2) Kidney lesion: Code(s): N28.9 - Disorder of kidney and ureter, unspecified Status: Acute (3) Dilated pancreatic duct: Code(s): K86.89 - Other specified diseases of pancreas Status: Acute (4) Acute UTI: Code(s): N39.0 - Urinary tract infection, site not specified Status: Acute (5) Diabetes: Code(s): E11.9 - Type 2 diabetes mellitus without complications Status: Acute (6) Coronary artery disease: Code(s): I25.10 - Atherosclerotic heart disease of ramona coronary artery without angina pectoris Status: Acute DS: Summary Hospital Course Hospital Course: 64 year old female with past medical history of diabetes mellitus, iron deficiency on iron infusions, breast cancer s/p mastectomy and chemotherapy in 2019, CAD s/p stents in 2014 on plavix, and hyperlipidemia presents to the hospital for abdominal pain. The abdominal pain started two days ago and initially was intermittent sharp stabbing pain. She associated these symptoms with gas and took Gas X without relief. The abdominal pain then became constant with sharp/stabbing more localized to the lower abdomen, predominantly on the left. She had associated nausea but no vomiting. She then developed loose stools, denies any blood in her stool. She denies any associated fever, chills, night sweats. Discussed code status with patient, she wishes to remain full code at this time and discuss further with her daughter. ED workup: CBC with WBC 20.1, H/H 12.8/39.1, PLT 244. CMP with Na 138, K 3.3, BUN/Cr 12/0.93 with GFR 60. Glucose 141. Lactic WNL. LFTs WNL. Lipase 82. Surgery was consulted. CT scan reviewed and shows evidence of acute sigmoid diverticulitis with microperforation. No abscess. Pt is tender to the LLQ. No diffuse peritoneal signs. No indication for emergent surgical intervention at this time. She was started on IV Zosyn in the ER. ABDOMEN MRI: Craniocaudal span of the liver measures 16 cm. Spleen measures 8 cm in length. No abnormal enhancement within the liver on postcontrast study. ABDOMEN MRCP: No evidence of gallstones. No calculi in the diaphragmatic and extrahepatic bile ducts. Common bile duct measures 8 mm in diameter. Pancreatic duct is dilated in the head of the pancreas and body and tail of the pancreas measuring up to 9 mm in diameter. No evidence of pancreatic calculi. No evidence of stricture of the pancreatic duct near the confluence with the common bile duct is noted. No evidence of peripancreatic inflammation. IMPRESSION: 1. No evidence of gallstones. Borderline dilated extrahepatic bile ducts. 2. Diffusely dilated pancreatic duct to the confluence with the common bile duct with stricture of the pancreatic duct at this level. No evidence of pancreatic calculi are noted. Endoscopy/biopsy is suggested to ensure benign process. Stent placement can be done at the same sitting. 3. No focal lesions of the liver and spleen. Mild hepatomegaly. CT was done with accidental finding of cystic mass to rt kidney. MRI/MRCP was completed. There is a 2.4 cm complex cystic mass at the upper pole the right kidney which demonstrates several thickened and irregular enhancing internal septations which measure between 3-4 mm in maximal thickness consistent with an indeterminate Bosniak 3 lesion concerning for renal cell carcinoma with estimated risk of malignancy of 50-70%. There is an additional 8 mm simple a ppearing T2 hyperintense nonenhancing cyst at the anterior interpolar region of the right kidney. Kidneys are otherwise unremarkable. Recommend urologic consultation. Urology was consulted. WE are waiting for a consult and pt wants to go home with further work up as indicated per urology and/or possible referral to oncology if needed. Thao (surgery [employer]ER) already sent Augmentin and flagyl for 7 more days for pt to complete her antibiotics tx. She is no nauseated and tolerating diet well. Eager to go home. Status at Discharge Functional status at discharge: independent ambulation Overall status at discharge: patient is back to baseline Time Spent with Patient Time attestation: Total time spent providing and/or coordinating discharge services: Exam Narrative: General: female in no acute respiratory distress who is nontoxic appearing, lying semi recumbent in bed. HEENT: Normocephalic. Atraumatic. Extraocular movement intact. Sclera clear and anicteric. No facial asymmetry. Neck: Neck was supple. No dominant adenopathy, thyromegaly or masses. Chest: Lungs are clear to auscultation bilaterally. No wheezes or crackles. CV: Heart was regular rate and rhythm. S1-S2. No murmurs, gallops, or rubs. Abd: Abdomen was soft. Nondistended. Positive bowel sounds. Ext: No clubbing, cyanosis, or edema. DP pulses bilaterally. Neuro: Patient is alert and oriented x4. Strength is 5/5 in both upper and lower extremities. Speech is clear. Psych: Normal mood and affect. Patient is pleasant and cooperative. Skin: Warm and dry. No rashes noted. Const: General: comfortable DS: Data Data Completed and Pending Labs on day of discharge: Labs from last 24 hours 06/23/25 06/23/25 06/23/25 11:08 07:40 06:57 WBC 9.5 RBC 3.38 L Hgb 10.7 L Hct 32.6 L MCV 96.4 MCH 31.7 MCHC 32.8 RDW 15.0 H Plt Count 252 MPV 9.3 Sodium 140 Potassium 3.4 Chloride 109 H Carbon Dioxide 24 Anion Gap 7 BUN 6 L D Creatinine 0.79 Estim Creat Clear Calc 62 Estimated GFR > 60 Glucose 115 H POC Capillary Glucose 138 H 126 H Calcium 8.4 Magnesium 2.0 Total Bilirubin 0.4 AST 24 ALT 12 Alkaline Phosphatase 92 Total Protein 6.6 Albumin 3.5 06/22/25 06/22/25 19:35 16:28 WBC RBC Hgb Hct MCV MCH MCHC RDW Plt Count MPV Sodium Potassium Chloride Carbon Dioxide Anion Gap BUN Creatinine Estim Creat Clear Calc Estimated GFR Glucose POC Capillary Glucose 163 H 121 H Calcium Magnesium Total Bilirubin AST ALT Alkaline Phosphatase Total Protein Albumin Preliminary micro results at discharge 06/21/25 01:18 - Preliminary Unspecified Urine Escherichia coli. Discharge Plan Discharge Attending physician on discharge: Tien Watkins Consulting providers: Tommy Mcclendon; Glenny Cardenas Discharging Clinician: Precious Hernandez Patient Disposition: Home Activity: may shower Diet: low fiber Discharge Instructions: Surgery Discharge Instructions: * Continue low fiber diet for 2 weeks. Then transition to a high fiber diet * Call to schedule an appointment with Dr. Mcclendon in our office in 2 weeks. ([phone]) * Call sooner or return to the ER if you have abdominal pain, fevers, or vomiting. * supervisor drapery hanging and take all antibiotics as prescribed. DO NOT drink alcohol while taking these antibiotics. Once urology sees you today, please follow instructions provided for further eval for kidney cyst. Please f/u with your established GI doctor Patient Instructions: Antibiotic Form, How to Stop Smoking (GEN), Pain Management in Older Adults (DC), Low Fiber Diet (DC), Opioid Safety (DC), Non- pharmacological Pain Management Therapies for Adults (GEN), Medication Safety for Older Adults (DC) Patient Language: Nigerian Stand Alone Forms: General Discharge Information Follow-up/Referrals: Tommy Mcclendon DO [Physician, General Surgery] - 2 Weeks Discharge Medications: New amoxicillin-pot clavulanate 875-125 mg tablet 1 tablet PO Q12H 7 Days Qty: 14 0RF metronidazole 500 mg tablet 500 mg PO Q8H 7 Days Qty: 21 0RF Continued carvedilol 6.25 mg tablet 6.25 mg PO BID pantoprazole 20 mg tablet,delayed release (DR/EC) 20 mg PO DAILY lisinopril 10 mg Tablet 10 mg PO DAILY glimepiride 4 mg tablet 4 mg PO DAILY pioglitazone 30 mg tablet 30 mg PO DAILY rosuvastatin 40 mg tablet 40 mg PO DAILY acetaminophen [Tylenol Arthritis Pain] 650 mg Tablet Extended Release 650 mg PO Q8H PRN (Reason: Pain) ezetimibe 10 mg tablet 10 mg PO DAILY Trulicity 3 mg/0.5 mL pen injector 3 mg subcut WEEKLY clopidogrel 75 mg tablet 75 mg PO DAILY aspirin [Adult Low Dose Aspirin] 81 mg Tablet 81 mg PO DAILY calcium carbonate-vitamin D3 [Calcium 600 + D(3)] 600 mg-10 mcg (400 unit) Tablet 1 tablet PO DAILY Jardiance 25 mg tablet 25 mg PO DAILY Date of admission: 06/22/25 10:40 Primary Care Provider: MadelineKalen Admitting Provider: Kelsea Garcia Attending physician on admission: Kelsea Garcia Condition: Stable Quality VTE Prophylaxis VTE prophylaxis: mechanical ordered Hospitalist MIPS Heart Failure (Exclusion) Patient has history of Heart Transplant or Left Ventricular Assistive Device?: No IF YES, STOP HERE Heart Failure (Qualifier) Patient has current or prior documentation of LVEF less than or equal to 40%, or mod/servere depressed LVSF?: No IF NO, STOP HERE
[2025-06-23 16:14] VITALS: PULSE 68
--- NOTE | 2025-06-23 16:35 | WPDURCON ---
Assessment and Plan Assessment and plan (1) Kidney lesion: Code(s): N28.9 - Disorder of kidney and ureter, unspecified Status: Acute Assessment and Plan: - MRI completed on 06/21/2025 shows addendum focusing on a renal mass. There is a 2.4 cm complex cystic mass of the upper pole of the right kidney which demonstrates several thickened and irregular enhancing internal septations which measured between 3-4 mm in maximal thickness consistent with an indeterminate Bosniak 3 lesion concerning for renal cell carcinoma with estimated risk of malignancy to 50-70%. There is an additional 8 mm simple appearing T2 hyperintense nonenhancing cyst at the anterior interpolar region of the right kidney. Kidneys are otherwise unremarkable. - No urologic surgical intervention at this time. - patient will need to follow up as outpatient for further management of indeterminate Bosniak 3 lesion - I will coordinate this from our side and she will be contacted for an appointment for follow up. - Case discussed with Dr. Cardenas. (2) Acute UTI: Code(s): N39.0 - Urinary tract infection, site not specified Status: Acute Assessment and Plan: Culture driven antibiotics per primary service Urology Consult Note HPI Date Seen: 06/23/25 Requesting Physician: Prateek Garcia DO Primary Care Provider: Kalen CroreaAdalid Consult Narrative Narrative: 64 year old female with past medical history of diabetes mellitus, iron deficiency on iron infusions, breast cancer s/p mastectomy and chemotherapy in 2019, CAD s/p stents in 2014 on plavix, and hyperlipidemia presents to the hospital for abdominal pain. The abdominal pain started two days ago and initially was intermittent sharp stabbing pain. She associated these symptoms with gas and took Gas X without relief. The abdominal pain then became constant with sharp/stabbing more localized to the lower abdomen, predominantly on the left. She had associated nausea but no vomiting. She then developed loose stools, denies any blood in her stool. She denies any associated fever, chills, night sweats. Urology was contacted for management of complex cystic mass noted on MRI. Review of Systems Review of Systems: All systems reviewed & are unremarkable except as noted in HPI and below PMFSH Past Medical History Medical History Atrophic gastritis Abnormal computed tomography of cecum and terminal ileum Ankle fracture Breast cancer Diabetes Surgical History Surgical History (Updated 06/21/25 @ 14:42 by Bailey Gonsalez PA-C) H/O right mastectomy History of coronary artery stent placement Family History Family History Mother , Diet after complications of surgery for perforated viscus Acute myocardial infarction Sibling Asthma Father , Thought to have in his 50s unknown cause in his sleep No problems noted. Social History Social History (Updated 06/21/25 @ 14:43 by Bailey Gonsalez PA-C) Social History: Presently lives alone. No pets. Occupational exposure Years smoked: 50 Smoking status: Current every day smoker Tobacco type: cigarettes Additional smoking assessment comments: Has smoked for some 40 years presently at half pack a day Alcohol intake: current Drinks per week: 7 Alcohol use details: BEERS/WINE Substance use: current Substance use type: marijuana Other substance usage details: VAPE PEN OCC. FOR PAIN Lack of Transportation: No Lack of Food: Never True Current Housing: I Have Housing Concerned About Future Housing: No Difficulty Paying Gas/Electric Bills: No Difficulty Paying for Meds: No Currently Unemployed: No Education: Grade School Difficulty w/ Childcare or Family Care: No Living arrangements: with family Gender identity (if verbalized by the patient): Female Spiritual care concerns: No Meds Home Medications and Allergies Home Medications ?Medication ?Instructions ?Recorded ?Confirmed ?Type acetaminophen 650 mg 650 mg PO Q8H PRN Pain 02/15/20 06/21/25 History tablet,extended release (Tylenol Arthritis Pain) carvedilol 6.25 mg tablet 6.25 mg PO BID 02/15/20 06/21/25 History glimepiride 4 mg tablet 4 mg PO DAILY 02/15/20 06/21/25 History lisinopril 10 mg tablet 10 mg PO DAILY 02/15/20 06/21/25 History pantoprazole 20 mg tablet,delayed 20 mg PO DAILY 02/15/20 06/21/25 History release pioglitazone 30 mg tablet 30 mg PO DAILY 02/15/20 06/21/25 History rosuvastatin 40 mg tablet 40 mg PO DAILY 02/15/20 06/21/25 History aspirin 81 mg tablet 81 mg PO DAILY 03/01/22 06/21/25 History calcium 600 mg (as 1 tablet PO DAILY 03/01/22 06/21/25 History carbonate)-vitamin D3 10 mcg (400 unit) tablet (Calcium 600 + D(3)) clopidogrel 75 mg tablet 75 mg PO DAILY 03/01/22 06/21/25 History empagliflozin 25 mg tablet 25 mg PO DAILY 03/01/22 06/21/25 History (Jardiance) dulaglutide 3 mg/0.5 mL 3 mg subcut WEEKLY 06/21/25 06/21/25 History subcutaneous pen injector (Trulicity) ezetimibe 10 mg tablet 10 mg PO DAILY 06/21/25 06/21/25 History amoxicillin 875 mg-potassium 1 tablet PO Q12H 7 days #14 tabs 06/23/25 Rx clavulanate 125 mg tablet metronidazole 500 mg tablet 500 mg PO Q8H 7 days #21 tabs 06/23/25 Rx Allergies Allergy/AdvReac Type Severity Reaction Status Date / Time codeine Allergy Severe Hives Verified 06/21/25 06:08 Vital Signs Vital Signs - 24 hr 06/22/25 16:46 06/22/25 20:11 06/23/25 06:00 Temperature 97.9 F 97.6 F Pulse Rate 78 72 65 Respiratory Rate 18 18 Blood Pressure 116/47 L 133/63 Pulse Oximetry 99 100 Oxygen Delivery 06/23/25 07:39 06/23/25 09:07 06/23/25 13:56 Temperature 96.8 F L Pulse Rate 68 68 Respiratory Rate 18 22 H Blood Pressure 134/53 L Pulse Oximetry 100 100 Oxygen Delivery Room Air 06/23/25 16:14 Temperature Pulse Rate 68 Respiratory Rate Blood Pressure Pulse Oximetry Oxygen Delivery Exam Const: General: comfortable and no acute distress HENMT: Face/Nose/Sinus: Normal nares present Eyes: General: appearance normal, both eyes and all related structures Resp: Effort & Inspection: normal respiratory effort Skin: General skin exam: normal color Neuro: Speech: normal speech Psych: Speech and movement: Normal speech and movement present Results Labs 06/23/25 06:57 06/23/25 06:57 Labs: Short CBC 06/23/25 Range/Units 06:57 WBC 9.5 (4.5-10.0) K/mm3 Hgb 10.7 L (12.0-15.0) g/dL Hct 32.6 L (37.0-47.0) % Plt Count 252 (150-375) k/mm3 BMP 06/23/25 06:57 Sodium 140 Potassium 3.4 Chloride 109 H Carbon Dioxide 24 BUN 6 L D Creatinine 0.79 Glucose 115 H Calcium 8.4 Liver Function 06/23/25 Range/Units 06:57 Total Bilirubin 0.4 (0.2-1.3) mg/dL AST 24 (14-36) U/L ALT 12 (6-35) U/L Alkaline Phosphatase 92 (38-126) U/L Albumin 3.5 (3.5-5.1) g/dL
== END 2025-06-23 18:35 | disposition home or self-care (01) | DRG 244 ==
LOC: ANHED 04:45 → ANH3MEDSUR 05:42
PROVIDERS: Student in an Organized Health Care Education/Training Program; Admitting Provider Student in an Organized Health Care Education/Training Program; Emergency Provider Emergency Medicine; PCP Internal Medicine Infectious Disease; Visit Provider Nurse Practitioner
DX: K57.32 Diverticulitis of large intestine without perforation or abscess without bleeding (principal); N39.0 Urinary tract infection, site not specified; D50.9 Iron deficiency anemia, unspecified; I25.10 Atherosclerotic heart disease of native coronary artery without angina pectoris; N28.9 Disorder of kidney and ureter, unspecified; K86.89 Other specified diseases of pancreas; F17.210 Nicotine dependence, cigarettes, uncomplicated; F10.90 Alcohol use, unspecified, uncomplicated; Z92.21 Personal history of antineoplastic chemotherapy; Z87.19 Personal history of other diseases of the digestive system; Z85.3 Personal history of malignant neoplasm of breast; Z90.11 Acquired absence of right breast and nipple; Z95.5 Presence of coronary angioplasty implant and graft; Z79.02 Long term (current) use of antithrombotics/antiplatelets; Z79.85 Long-term (current) use of injectable non-insulin antidiabetic drugs; Z79.82 Long term (current) use of aspirin
CPT/HCPCS: 36415; 74177; 74183; 76376; 80053; 81001; 82948; 83036; 83605; 83690; 83735; 85025; 85027; 87040; 87086; 87186; 96361; 96365; 96375; 96376; 99285; A9270; A9577; G0378; G0379; J2270; J2405; J2543; J3480; J7030; J7040; J7120; Q9967